=== PATIENT | male | born 1975 | race Caucasian/White ===

== ENCOUNTER 2022-12-01 17:32 | Observation (INO) ==
--- NOTE | 2022-12-01 17:49 | ED Triage Note ---
Date of Service December 01, 2022 History of Present Illness This patient was briefly evaluated while in triage. An abbreviated physical exam was performed. This patient is a 47-year-old Male who presents to the ED for evaluation of pain and swelling. Hx of severe arthritis. Called arthritis doctor and cannot get into the end of sept. Edema of hands, ankles and feet. Pain 8.5/10. Physical Exam GENERAL: 47 year old male. In no acute distress. SKIN: No lesions or rashes. HEART: Regular rate and rhythm. LUNGS: Clear to auscultation. NEURO: Alert and oriented. No deficits. MUSCULOSKELETAL: Edema to distal extremities noted. PSYCH: Patient is pleasant and answers all questions appropriately. Initial orders for labs and / or imaging were placed and patient was placed in the waiting area until a bed is available. Please see further documentation for the full ED course.
[2022-12-01 18:16] LABS: Basophils # (auto) 0.06 K/uL (0.00-0.20); Basophils % (auto) 0.7 %; Eosinophils # (auto) 0.24 K/uL (0.00-0.50); Eosinophils % (auto) 2.7 %; Hematocrit (blood only) 41.5 % (42.0-52.0); Hemoglobin 14.9 g/dl (14.0-18.0); Immature Granulocytes # (auto) 0.02 K/uL (0.01-0.20); Immature Granulocytes % (auto) 0.2 %; Lymphocytes # (auto) 2.51 K/uL (1.20-3.40); Lymphocytes % (auto) 28.5 %; Mean Corpuscular Hgb Conc 35.9 g/dL (32.0-36.0); Mean Corpuscular Volume 86.5 fL (80.0-100.0); Mean Platelet Volume 10.1 fL (9.4-12.4); Monocytes % (auto) 12.5 %; Neutrophils # (auto) 4.88 K/uL (1.40-6.50); Neutrophils % (auto) 55.4 %; Platelet Count 263 K/uL (130-400); RDW Coefficient of Variation 13.7 % (11.5-14.5); RDW Standard Deviation 43.2 fL (36.4-46.3); White Blood Count 8.81 K/ul (4.8-10.8)
--- NOTE | 2022-12-01 18:43 | Emergency Department Note ---
Impression & Plan Edema, Elevated troponin, Psoriatic arthritis, Hypertension ED Provider Note NAME: VEDA SINGH AGE: 47 SEX: M : 1975 ARRIVES VIA: Walk-In INFORMANT: Patient, ED PROVIDER(S): Flex Morales MD CHIEF COMPLAINT: Extremity swelling MEDICAL DECISION MAKING: Patient presents due to concern for extremity swelling and associated weight gain. IV was established and blood work was obtained Patient has a normal white count hemoglobin and platelet count. Patient's kidney function is unremarkable with normal electrolytes. Patient's initial troponin is 37. No priors for comparison. The patient does have T wave inversions in the high lateral leads. None for comparison. I did speak the on-call hospitalist Dr. Summers and the patient was admitted to the medicine service. Chest x-ray does show cardiomegaly and vascular congestion. No obvious pneumonia. The patient does not have any asymmetry in his extremities do not believe he requires DVT ultrasounds at this time Prior /Outside records reviewed: I reviewed an outpatient visit note to the [facility]. The patient was seen for joint pain and associated swelling. Patient does have a known history of psoriatic arthritis Differential diagnosis: Electrolyte abnormality, CHF, DVT, liver dysfunction, kidney dysfunction among others were considered Diagnostics, as interpreted by me: ECG: Normal sinus rhythm, rate of 84, normal intervals, normal axis, T wave version in the high lateral leads as well as in the lateral leads. No priors for comparison. Cardiac monitoring: An order was placed for continuous cardiac monitoring. The monitor shows a rate of 82 with sinus rhythm. Patient was placed on pulse oximetry Medical decision rules: None Imaging studies: See below I informally reviewed the patient's chest x-ray which shows cardiomegaly but without pneumothorax HPI: Patient presents due to concern for weight gain and fatigue. The patient has also noticed some associated extremity swelling and joint discomfort. Patient does have a known history of psoriatic arthritis and does state that he may just be having a flareup but has noticed increasing fatigue as well as some swelling. Patient denies any falls or trauma. No reported history of any tick bites or Lyme's. Patient does have some chronic shortness of breath. No orthopnea. The patient denies any chest pains nausea vomiting or diaphoresis. Patient states he is compliant with his medications. Patient is also concerned as he believes he has put on about 15 pounds in over 2 weeks. The patient does receive most of his care through [facility] in [place]. The patient does use a CPAP at night. PAST MEDICAL HISTORY: See Below PAST SURGICAL HISTORY: See Below SOCIAL HISTORY: See Below HOME MEDICATIONS: See Below ALLERGIES: See Below VITALS: See Below PHYSICAL EXAMINATION: GENERAL: NAD, non-toxic. Wearing glasses. EYE EXAM: Normal conjunctiva. PERRL, no anisocoria and EOM's grossly intact w/o pain. OROPHARYNX: Moist mucus membranes, grossly normal dentition. NECK: Supple, no nuchal rigidity, no adenopathy, non-tender. No signs of meningismus. FROM of the neck with good chin to chest and neck extension. No stridor. LUNGS: Clear to auscultation. Normal chest wall mechanics. HEART: NSR, no MRG. ABDOMEN: Abdomen soft, non-tender, no masses, no rebound or guarding. BACK: No CVA TTP. SKIN: No rashes and no bruising. UPPER EXTREMITIES: Upper extremities are grossly normal. LOWER EXTREMITIES: Grossly normal, symmetric edema of the bilateral lower extremities. No calf pain. NEURO EXAM: A&O x3, cranial nerves II-XII grossly intact, normal speech, moves all 4 extremities. Past Med/Surg History Medical History Back pain CHF (congestive heart failure) CTS (carpal tunnel syndrome) Depression Osteoarthritis Psoriasis Psoriatic arthritis Sleep apnea Surgical History H/O removal of cyst History of orthopedic surgery Social History Smoking Status: Current every day smoker Tobacco Type: Cigarettes Preferred Language: Syriac Feels Safe at Home: Yes Allergies Allergies Allergy/AdvReac Type Severity Reaction Status Date / Time adalimumab [From Humira] Allergy Severe rash Verified 12/01/22 20:49 celecoxib [From Celebrex] Allergy Severe Rash Verified 12/01/22 20:49 codeine Allergy Unknown Drowsy Verified 12/01/22 20:49 Sulfa (Sulfonamide Allergy Unknown Rash Verified 12/01/22 20:49 Antibiotics) Home Meds Home Medications Medication Instructions Recorded Confirmed folic acid 1 mg tablet 1 mg PO QAM 05/21/21 12/01/22 methotrexate sodium 2.5 mg tablet 20 mg PO WK 05/21/21 12/01/22 multivitamin (Multiple Vitamins 1 tab PO QAM 05/21/21 12/01/22 tablet) ropinirole 4 mg tablet 4 mg PO HS 05/21/21 12/01/22 turmeric root extract 500 mg 2,000 mg PO QAM 05/21/21 12/01/22 capsule amlodipine 5 mg tablet 5 mg PO QAM 12/01/22 12/01/22 fluticasone fur. 100 mcg-umeclid 2 ea inhalation QAM 12/01/22 12/01/22 62.5 mcg-vilant 25 mcg inhalat.powder (Trelegy Ellipta) lisinopril 40 mg tablet 40 mg PO QAM 12/01/22 12/01/22 piroxicam 20 mg capsule 20 mg PO QAM 12/01/22 12/01/22 ropinirole 4 mg tablet,extended 4 mg PO HS 12/01/22 12/01/22 release 24 hr Results & Data (ED) Vital Signs Vital Signs - 24 hr 12/01/22 17:47 12/01/22 19:09 12/01/22 19:33 Temperature 36 C L Temperature Source Temporal Artery Scan Pulse Rate 84 75 Pulse Rate from SpO2 Sensor 75 Pulse Rhythm [Apical] Regular Pulse Strength [Apical] Normal Respiratory Rate 18 14 Respiratory Effort / Characteristics Non-Labored Non-Labored Respiratory Depth Normal Normal Respiratory Pattern Regular Blood Pressure 177/103 H 159/91 H Blood Pressure Mean 127 113 Pulse Oximetry 96 96 Oxygen Delivery Method Room Air Room Air Sepsis Recent Fever Within 48 Hours No Sepsis New/Unexplained Change in Mental Status No Sepsis Action Taken by Nursing No Action Required 12/01/22 19:30 12/01/22 19:31 12/01/22 20:00 Temperature Temperature Source Pulse Rate 79 80 75 Pulse Rate from SpO2 Sensor 79 80 76 Pulse Rhythm [Apical] Pulse Strength [Apical] Respiratory Rate 19 18 18 Respiratory Effort / Characteristics Respiratory Depth Respiratory Pattern Blood Pressure 166/87 H Blood Pressure Mean 113 Pulse Oximetry 95 97 94 Oxygen Delivery Method Room Air Sepsis Recent Fever Within 48 Hours Sepsis New/Unexplained Change in Mental Status Sepsis Action Taken by Nursing 12/01/22 20:01 12/01/22 18:44 Temperature Temperature Source Pulse Rate 77 78 Pulse Rate from SpO2 Sensor 76 Pulse Rhythm [Apical] Pulse Strength [Apical] Respiratory Rate 20 Respiratory Effort / Characteristics Respiratory Depth Respiratory Pattern Blood Pressure 154/85 H Blood Pressure Mean 108 Pulse Oximetry 96 Oxygen Delivery Method Room Air Sepsis Recent Fever Within 48 Hours Sepsis New/Unexplained Change in Mental Status Sepsis Action Taken by Correction Medications Current Medication List: was personally reviewed by me Laboratory Data Attestation: I reviewed the patient's lab results. 12/01/22 17:55 12/01/22 17:55 Lab Results 12/01/22 12/01/22 12/01/22 Range/Units 17:55 17:55 17:55 WBC 8.81 (4.8-10.8) K/ul RBC 4.80 (4.70-6.10) M/uL Hgb 14.9 (14.0-18.0) g/dl Hct 41.5 L (42.0-52.0) % MCV 86.5 (80.0-100.0) fL MCH 31.0 (25.0-34.0) pg MCHC 35.9 (32.0-36.0) g/dL RDW Std Deviation 43.2 (36.4-46.3) fL RDW Coeff of Karl 13.7 (11.5-14.5) % Plt Count 263 (130-400) K/uL MPV 10.1 (9.4-12.4) fL Immature Gran % (Auto) 0.2 % Neut % (Auto) 55.4 % Lymph % (Auto) 28.5 % [place] % (Auto) 12.5 % Eos % (Auto) 2.7 % Baso % (Auto) 0.7 % Neut # (Auto) 4.88 (1.40-6.50) K/uL Lymph # (Auto) 2.51 (1.20-3.40) K/uL [place] # (Auto) 1.10 H (0.11-0.59) K/uL Eos # (Auto) 0.24 (0.00-0.50) K/uL Baso # (Auto) 0.06 (0.00-0.20) K/uL Immature Gran # (Auto) 0.02 (0.01-0.20) K/uL PT 10.4 (9.0-12.0) Seconds INR 0.9 (0.9-1.1) APTT 26.7 (21.0-31.0) Seconds PTT Ratio 0.9 Sodium 138 (136-145) mmol/L Potassium 3.9 (3.5-5.1) mmol/L Chloride 103 (98-107) mmol/L Carbon Dioxide 27 (21-32) mmol/L Anion Gap 8 (3-11) BUN 23 (6-23) mg/dl Creatinine 0.90 (0.6-1.4) mg/dl Est Cr Clr Drug Dosing 138.6 ml/min Est GFR ( Amer) 115.8 ml/min Est GFR (Non-Af Amer) 99.9 ml/min BUN/Creatinine Ratio 25.6 H (10-20) Glucose 88 (70-99(Fasting)) mg/dl Calcium 9.5 (8.6-10.3) mg/dl Magnesium 2.1 (1.7-2.4) mg/dl Total Bilirubin 0.5 (0.2-1.0) mg/dl AST 23 (13-39) U/L ALT 31 (7-52) U/L Alkaline Phosphatase 66 (34-104) U/L Troponin I High Sens 37.4 H (0-20) pg/ml B-Natriuretic Peptide (0-100) pg/ml Total Protein 8.0 (6.0-8.3) gm/dl Albumin 4.7 (3.4-5.0) gm/dl Globulin 3.3 (2.5-4.0) gm/dl Albumin/Globulin Ratio 1.4 (0.9-2) TSH (0.300-4.500) uIu/ml 12/01/22 12/01/22 Range/Units 17:55 17:55 WBC (4.8-10.8) K/ul RBC (4.70-6.10) M/uL Hgb (14.0-18.0) g/dl Hct (42.0-52.0) % MCV (80.0-100.0) fL MCH (25.0-34.0) pg MCHC (32.0-36.0) g/dL RDW Std Deviation (36.4-46.3) fL RDW Coeff of Karl (11.5-14.5) % Plt Count (130-400) K/uL MPV (9.4-12.4) fL Immature Gran % (Auto) % Neut % (Auto) % Lymph % (Auto) % [place] % (Auto) % Eos % (Auto) % Baso % (Auto) % Neut # (Auto) (1.40-6.50) K/uL Lymph # (Auto) (1.20-3.40) K/uL [place] # (Auto) (0.11-0.59) K/uL Eos # (Auto) (0.00-0.50) K/uL Baso # (Auto) (0.00-0.20) K/uL Immature Gran # (Auto) (0.01-0.20) K/uL PT (9.0-12.0) Seconds INR (0.9-1.1) APTT (21.0-31.0) Seconds PTT Ratio Sodium (136-145) mmol/L Potassium (3.5-5.1) mmol/L Chloride (98-107) mmol/L Carbon Dioxide (21-32) mmol/L Anion Gap (3-11) BUN (6-23) mg/dl Creatinine (0.6-1.4) mg/dl Est Cr Clr Drug Dosing ml/min Est GFR ( Amer) ml/min Est GFR (Non-Af Amer) ml/min BUN/Creatinine Ratio (10-20) Glucose (70-99(Fasting)) mg/dl Calcium (8.6-10.3) mg/dl Magnesium (1.7-2.4) mg/dl Total Bilirubin (0.2-1.0) mg/dl AST (13-39) U/L ALT (7-52) U/L Alkaline Phosphatase (34-104) U/L Troponin I High Sens (0-20) pg/ml B-Natriuretic Peptide 86 (0-100) pg/ml Total Protein (6.0-8.3) gm/dl Albumin (3.4-5.0) gm/dl Globulin (2.5-4.0) gm/dl Albumin/Globulin Ratio (0.9-2) TSH 1.393 (0.300-4.500) uIu/ml Administered Medications Acetaminophen (Acetaminophen 500 Mg Tab) 1,000 mg PO Q8 NICHOLAS Stop: 12/31/22 22:34 Last Admin: 12/01/22 23:12 Dose: 1,000 mg Documented By: LADI Discontinued Medications Oxycodone HCl (Oxycodone Hcl Ir 5 Mg Tab (Immediate Release)) 5 mg PO NOW STA Stop: 12/01/22 19:30 Last Admin: 12/01/22 19:41 Dose: 5 mg Documented By: LADI Imaging Data Radiologist's Impression: Chest X-Ray 12/01/22 17:49 XR chest 1V portable HISTORY: Edema to extremities, atypical chest COMPARISON: None. FINDINGS: No pneumothorax. No pleural effusions. The cardiac silhouette is mildly enlarged. There is diffuse interstitial/vascular thickening consistent with mild congestive change. No focal lung consolidations to suggest a pneumonia. There is a 16 mm nodular density within the right midlung zone. This is likely due to the overlapping ribs. Calcified granuloma within the right upper lobe is noted. IMPRESSION: 1. Cardiomegaly with mild pulmonary vascular congestion. 2. A 16 mm nodular density within the right mid lung zone is likely due to the overlapping ribs. Follow-up nonemergent PA and lateral views of the chest are recommended once the patient's pulmonary vascular congestion has improved to exclude the possibility of a pulmonary nodule. ACT 112: Negative or not required by law. Electronically signed by: Tyrell Navarro M.D. 12/01/2022 7:03 PM Discharge Plan Visit Data Chief Complaint: Lower Extremity Injury/Pain Stated Complaint: FATIGUE, BODY SWELLING ED Provider: Flex Morales Discharge Problem: Edema, Elevated troponin, Psoriatic arthritis, Hypertension Patient Disposition: Admitted As Inpatient Discharge Instructions Interventions: ED Discharge Assessment Last Done: 12/01/22 22:36
[2022-12-01 18:44] LABS: Albumin Globulin Ratio 1.4 (0.9-2); Albumin Level 4.7 gm/dl (3.4-5.0); BUN Creatinine Ratio 25.6 (10-20); Bilirubin,Total 0.5 mg/dl (0.2-1.0); Calcium 9.5 mg/dl (8.6-10.3); Creatinine Clr Calc Pharmacy 138.6 ml/min; Est GFR (African American) 115.8 ml/min; Est GFR (Non-African American) 99.9 ml/min; Globulin 3.3 gm/dl (2.5-4.0); Magnesium 2.1 mg/dl (1.7-2.4); Potassium 3.9 mmol/L (3.5-5.1)
[2022-12-01 18:50] LABS: Troponin I High Sensitivity 37.4 pg/ml (0-20)
[2022-12-01 18:54] LABS: INR 0.9 (0.9-1.1); Partial Thromboplastin Ratio 0.9; Partial Thromboplastin Time 26.7 Seconds (21.0-31.0); Prothrombin Time 10.4 Seconds (9.0-12.0)
--- NOTE | 2022-12-01 19:04 | XRay Report ---
XR chest 1V portable HISTORY: Edema to extremities, atypical chest COMPARISON: None. FINDINGS: No pneumothorax. No pleural effusions. The cardiac silhouette is mildly enlarged. There is diffuse interstitial/vascular thickening consistent with mild congestive change. No focal lung consol idations to suggest a pneumonia. There is a 16 mm nodular density within the right midlung zone. This is likely due to the overlapping ribs. Calcified granuloma within the right upper lobe is noted. IMPRESSION: 1. Cardiomegaly with mild pulmonary vascular congestion. 2. A 16 mm nodular density within the right mid lung zone is likely due to the overlapping ribs. Foll ow-up nonemergent PA and lateral views of the chest are recommended once the patient's pulmonary vasc ular congestion has improved to exclude the possibility of a pulmonary nodule. ACT 112: Negative or not required by law. Electronically signed by: Tyrell Navarro M.D. 12/01/2022 7:03 PM
[2022-12-01] MEDS ORDERED: oxyCODONE HCL IR 5 MG TAB (IMMEDIATE RELEASE) PO STA (19:29)
--- NOTE | 2022-12-01 20:16 | History & Physical Report ---
Date of Service December 01, 2022 Assessment & Plan (1) Edema: Plan: 47yo male with psoriatic arthritis, VIKY on CPAP presenting with progressive edema and weight gain of approximately 14 pounds over the last 2.5 weeks. Patient denies orthopnea or worsening shortness of breath. Reports a history of prior AL with heart failure worked up at outside facilities - details unknown. He is currently not taking any diuretic. Amlodipine 5mg could be contributing to edema. -Admit to medical with telemetry -Check TSH, Urinalysis to look for proteinuria -Repeat troponin -Check 2d echocardiogram -Request outside records from [place] and [facility] -Lasix 40mg IV daily -Monitor I/Os -Monitor daily standing weights -Hold Amlodipine -Consider Cardiology consultation pending results of troponin and echo. Patient should be scheduled Cardiology followup prior to discharge as he has been having a difficult time being seen. (2) Elevated troponin: Plan: Mildly elevated troponin of 37.4 --> 38.2. EKG changes most likely represent LVH with repolarization pattern. Patient denies chest pain. -Telemetry monitoring -Trend troponin -Check 2D echo (3) Hypertension: Plan: Blood pressure elevated at present -Pain control -Continue Lisinopril -Holding Amlodipine for now (4) Sleep apnea: Plan: Chronic. Patient reports compliance with his home CPAP -CPAP qHS (5) Psoriatic arthritis: Plan: Chronic -Continue Methotrexate -Toradol PRN History of Present Illness Chief Complaint: edema Primary Care Provider: Erasto Fletcher PA-C Adolfo Ordoñez is a 47yo male with history of Psoriatic arthritis and VIKY compliant with CPAP therapy presenting with progressive edema over the last several weeks. Patient reports a prior history of CHF that occurred around the time he got the Covid-19 vaccine. He was supposed to be seen by Cardiology in [place] but, unfortunately, there was some miscommunication and he was never scheduled for proper followup. He also reports having a heart attack in 2018. He had a stress test with a subsequent cardiac catheterization. No stents were placed and he reports only a 30% blockage in one of his vessels. This was done at [facility]. Presently he does not follow with a Mortuary Operations Manager or take any cardiac medications. He presents today with worsening edema of the bilateral LE and hands. He first noted the swelling approximately 3-4 weeks ago after being started on Rinvoq for his Psoriatic arthritis by his Open Die Inspector, Dr. Vásquez. He reports worsening swelling x 1-2 weeks while taking the Rinvoq. He then stopped taking the Rinvoq and his swelling slightly improved. Today, however, he notes worsening swelling in his bilateral legs and hands. Also with weight gain - approximately 14 pounds over the last 2.5 weeks. Patient has generalized fatigue as well as pain in his joints. Denies fever, chills, chest pain, palpitations. He has stable shortness of breath and an occasional dry cough which has not worsened or changed. He denies orthopnea, syncope, nausea, vomiting, diarrhea or constipation. He was taking Prednisone for his Psoriatic arthritis - 10mg daily for a little over a year. He reports he was decreasing it himself and was taking it every other day to every third day. Prednisone was discontinued when he started Rinvoq. In the ER he is afebrile, HD stable, NAD. Resting comfortably with his at bedside. ER Course: Oxycodone 5mg Allergies Allergy/AdvReac Type Severity Reaction Status Date / Time adalimumab [From Humira] Allergy Severe rash Verified 12/01/22 20:49 celecoxib [From Celebrex] Allergy Severe Rash Verified 12/01/22 20:49 codeine Allergy Unknown Drowsy Verified 12/01/22 20:49 Sulfa (Sulfonamide Allergy Unknown Rash Verified 12/01/22 20:49 Antibiotics) Home Medications Medication Instructions Recorded Confirmed Type folic acid 1 mg tablet 1 mg PO QAM 05/21/21 12/01/22 History methotrexate sodium 2.5 mg tablet 20 mg PO WK 05/21/21 12/01/22 History multivitamin (Multiple Vitamins 1 tab PO QAM 05/21/21 12/01/22 History tablet) ropinirole 4 mg tablet 4 mg PO HS 05/21/21 12/01/22 History turmeric root extract 500 mg 2,000 mg PO QAM 05/21/21 12/01/22 History capsule amlodipine 5 mg tablet 5 mg PO QAM 12/01/22 12/01/22 History fluticasone fur. 100 mcg-umeclid 2 ea inhalation QAM 12/01/22 12/01/22 History 62.5 mcg-vilant 25 mcg inhalat.powder (Trelegy Ellipta) lisinopril 40 mg tablet 40 mg PO QAM 12/01/22 12/01/22 History piroxicam 20 mg capsule 20 mg PO QAM 12/01/22 12/01/22 History ropinirole 4 mg tablet,extended 4 mg PO HS 12/01/22 12/01/22 History release 24 hr Past Med/Surg History Medical History (Updated 12/01/22 @ 22:16 by Marycarmen Summers DO) Back pain CHF (congestive heart failure) CTS (carpal tunnel syndrome) Depression Osteoarthritis Psoriasis Psoriatic arthritis Sleep apnea Surgical History H/O removal of cyst History of orthopedic surgery Social History Smoking Status: Current every day smoker Tobacco Type: Cigarettes Preferred Language: Bermudian Feels Safe at Home: Yes Review of Systems Review of Systems: All systems reviewed & are unremarkable except as noted in HPI & below Physical Exam 2 Physical Exam: General: patient resting comfortably, NAD, non-toxic in appearance, AA&O x 4 Skin: warm, dry, intact, scattered pustular lesions on upper chest, small fluid filled blisters on RLE HEENT: NC/AT, PERRL, EOMI, anicteric sclera, conjunctiva without injection, external ear normal to inspection and nontender, nares patent, moist mucus membranes, dentition intact, no oropharyngeal lesions, neck supple, trachea midline, no LAD, no thyromegaly, no JVD Heart: +S1/S2, regular, no m/r/g Lungs: equal air entry bilaterally crackles in bilateral bases, no rhonchi/wheezes Abd: +BS, soft, NT/ND, no masses/organomegaly/ascites Ext: warm, 2+ pulses in UE/LE bilaterally, no clubbing/cyanosis, 2+ pitting edema of bilateral LE to knees Neuro: nonfocal, patient AA&O x 4, speech intact, no facial droop, moving all extremities on command with equal strength 5/5 Results & Data Results & Data Vital Signs (Past 12 Hours) Vital Signs Temp Pulse Resp BP Pulse Ox O2 Del Method 12/01/22 19:09 75 14 159/91 H 96 12/01/22 17:47 36 C L 84 18 177/103 H 96 Room Air Laboratory Results Laboratory Results WBC 8.81 K/ul (4.8-10.8) 12/01/22 17:55 RBC 4.80 M/uL (4.70-6.10) 12/01/22 17:55 Hgb 14.9 g/dl (14.0-18.0) 12/01/22 17:55 Hct 41.5 % (42.0-52.0) L 12/01/22 17:55 MCV 86.5 fL (80.0-100.0) 12/01/22 17:55 MCH 31.0 pg (25.0-34.0) 12/01/22 17:55 MCHC 35.9 g/dL (32.0-36.0) 12/01/22 17:55 RDW Std Deviation 43.2 fL (36.4-46.3) 12/01/22 17:55 RDW Coeff of Karl 13.7 % (11.5-14.5) 12/01/22 17:55 Plt Count 263 K/uL (130-400) 12/01/22 17:55 MPV 10.1 fL (9.4-12.4) 12/01/22 17:55 Immature Gran % (Auto) 0.2 % 12/01/22 17:55 Neut % (Auto) 55.4 % 12/01/22 17:55 Lymph % (Auto) 28.5 % 12/01/22 17:55 [place] % (Auto) 12.5 % 12/01/22 17:55 Eos % (Auto) 2.7 % 12/01/22 17:55 Baso % (Auto) 0.7 % 12/01/22 17:55 Neut # (Auto) 4.88 K/uL (1.40-6.50) 12/01/22 17:55 Lymph # (Auto) 2.51 K/uL (1.20-3.40) 12/01/22 17:55 [place] # (Auto) 1.10 K/uL (0.11-0.59) H 12/01/22 17:55 Eos # (Auto) 0.24 K/uL (0.00-0.50) 12/01/22 17:55 Baso # (Auto) 0.06 K/uL (0.00-0.20) 12/01/22 17:55 Immature Gran # (Auto) 0.02 K/uL (0.01-0.20) 12/01/22 17:55 PT 10.4 Seconds (9.0-12.0) 12/01/22 17:55 INR 0.9 (0.9-1.1) 12/01/22 17:55 APTT 26.7 Seconds (21.0-31.0) 12/01/22 17:55 PTT Ratio 0.9 12/01/22 17:55 Sodium 138 mmol/L (136-145) 12/01/22 17:55 Potassium 3.9 mmol/L (3.5-5.1) 12/01/22 17:55 Chloride 103 mmol/L (98-107) 12/01/22 17:55 Carbon Dioxide 27 mmol/L (21-32) 12/01/22 17:55 Anion Gap 8 (3-11) 12/01/22 17:55 BUN 23 mg/dl (6-23) 12/01/22 17:55 Creatinine 0.90 mg/dl (0.6-1.4) 12/01/22 17:55 Est Cr Clr Drug Dosing 138.6 ml/min 12/01/22 17:55 Est GFR ( Amer) 115.8 ml/min 12/01/22 17:55 Est GFR (Non-Af Amer) 99.9 ml/min 12/01/22 17:55 BUN/Creatinine Ratio 25.6 (10-20) H 12/01/22 17:55 Glucose 88 mg/dl (70-99(Fasting)) 12/01/22 17:55 Calcium 9.5 mg/dl (8.6-10.3) 12/01/22 17:55 Magnesium 2.1 mg/dl (1.7-2.4) 12/01/22 17:55 Total Bilirubin 0.5 mg/dl (0.2-1.0) 12/01/22 17:55 AST 23 U/L (13-39) 12/01/22 17:55 ALT 31 U/L (7-52) 12/01/22 17:55 Alkaline Phosphatase 66 U/L (34-104) 12/01/22 17:55 Troponin I High Sens 38.2 pg/ml (0-20) H 12/01/22 20:13 B-Natriuretic Peptide 86 pg/ml (0-100) 12/01/22 17:55 Total Protein 8.0 gm/dl (6.0-8.3) 12/01/22 17:55 Albumin 4.7 gm/dl (3.4-5.0) 12/01/22 17:55 Globulin 3.3 gm/dl (2.5-4.0) 12/01/22 17:55 Albumin/Globulin Ratio 1.4 (0.9-2) 12/01/22 17:55 Lyme Disease IgG Ab Negative (Negative) 12/01/22 20:13 Lyme Disease IgM Ab Negative (Negative) 12/01/22 20:13 Impressions Chest X-Ray 12/01/22 17:49 XR chest 1V portable HISTORY: Edema to extremities, atypical chest COMPARISON: None. FINDINGS: No pneumothorax. No pleural effusions. The cardiac silhouette is mildly enlarged. There is diffuse interstitial/vascular thickening consistent with mild congestive change. No focal lung consolidations to suggest a pneumonia. There is a 16 mm nodular density within the right midlung zone. This is likely due to the overlapping ribs. Calcified granuloma within the right upper lobe is noted. IMPRESSION: 1. Cardiomegaly with mild pulmonary vascular congestion. 2. A 16 mm nodular density within the right mid lung zone is likely due to the overlapping ribs. Follow-up nonemergent PA and lateral views of the chest are recommended once the patient's pulmonary vascular congestion has improved to exclude the possibility of a pulmonary nodule. ACT 112: Negative or not required by law. Electronically signed by: Tyrell Navarro M.D. 12/01/2022 7:03 PM ECG Additional Comments: EKG with NSR at 84bpm, normal axis, TT=309, YZj=320, NMb=447, LVH with likely repolarization pattern PG Care Time/CCT Total # of Minutes Spent Total Time Spent with Patient: Total time spent is greater than 50% in coordination of care (as documented) at patient's floor/unit and/or counseling patient: Coding Level of Care Code 61374 INT INP/OBS CARE 2/55MIN Diagnoses Edema R60.9 Elevated troponin R77.8 Hypertension I10 Sleep apnea G47.30 Psoriatic arthritis L40.50
[2022-12-01 21:40] LABS: Lyme Ab IgG w/WB Rflx Negative (Negative); Lyme Ab IgM w/WB Rflx Negative (Negative)
[2022-12-01] MEDS ORDERED: KETOROLAC TROMETHAMINE 15 MG/ML VIAL IV PRN (22:35)
[2022-12-01] MEDS ORDERED: ONDANSETRON INJ 2 MG/ML 2 ML VIAL IV PRN (22:35)
[2022-12-01] MEDS: ACETAMINOPHEN 500 MG TAB PO SCH (23:12)
[2022-12-02 04:40] LABS: Hematocrit (blood only) 40.1 % (42.0-52.0); Mean Corpuscular Hemoglobin 30.5 pg (25.0-34.0); Mean Corpuscular Hgb Conc 34.9 g/dL (32.0-36.0); Mean Corpuscular Volume 87.4 fL (80.0-100.0); Mean Platelet Volume 9.7 fL (9.4-12.4); Platelet Count 238 K/uL (130-400); RDW Coefficient of Variation 13.9 % (11.5-14.5); RDW Standard Deviation 43.8 fL (36.4-46.3); Red Blood Count 4.59 M/uL (4.70-6.10); White Blood Count 7.92 K/ul (4.8-10.8)
[2022-12-02 04:48] LABS: BUN Creatinine Ratio 22.9 (10-20); Calcium 8.9 mg/dl (8.6-10.3); Est GFR (African American) 107.1 ml/min; Est GFR (Non-African American) 92.4 ml/min; Potassium 3.8 mmol/L (3.5-5.1)
[2022-12-02 04:54] LABS: Troponin I High Sensitivity 30.5 pg/ml (0-20)
[2022-12-02] MEDS: ACETAMINOPHEN 500 MG TAB PO SCH ×3 (05:36→21:17)
[2022-12-02 06:31] LABS: Appearance Urine Clear (Clear); Bacteria Urine Automated Negative (Negative); Bilirubin Urine Negative (Negative); Blood Urine Negative (Negative); Color Urine Dark Yellow; Glucose Urine UA Negative (Negative); Ketones Urine Negative (Negative); Leukocyte Esterase Urine Negative (Negative); Nitrite Urine Negative (Negative); Protein Urine Trace (Negative); RBC Urine Automated 0-4 /hpf (0-4); Specific Gravity Urine 1.029 (1.000-1.030); Urobilinogen Urine Negative (Negative); pH Urine 5.5 (4.5-7.5)
[2022-12-02] MEDS ORDERED: FUROSEMIDE 40 MG/4 ML VIAL IV SCH (09:00)
[2022-12-02] MEDS ORDERED: cloNIDine HCL 0.1 MG TAB PO ONE (14:01)
--- NOTE | 2022-12-02 14:08 | Hospitalist Progress Note ---
Date of Service December 02, 2022 Assessment & Plan (1) Edema: Plan: Pulmonary vascular congestion noted on x-ray. Continue intravenous Lasix diuresis. Blood pressure control. Await cardiac echo results. Amlodipine discontinued as it may be contributing to peripheral edema (2) Elevated troponin: Plan: No chest pain. EKG changes are probably due to LVH. Cardiac echo report is pending. No evidence of acute coronary syndrome. This probably represents supply demand mismatch. (3) Hypertension: Plan: Clonidine replaces amlodipine. Continue lisinopril. (4) Sleep apnea: Plan: Weight loss recommended. CPAP at bedtime (5) Psoriatic arthritis: Plan: Stable. Continue Methotrexate Plan Hopefully home tomorrowDecember 03 Admission and Anticipated Discharge Date Admission Date: December 01, 2022 Subjective Alert and oriented. No distress. No shortness of breath at rest. Cardiac echo is pending. Troponin is minimally elevated but no evidence of acute coronary syndrome. Cardiac echo report is pending. Lisinopril will continue and amlodipine has been discontinued due to presence of peripheral edema. Clonidine replaces amlodipine. Continue IV Lasix diuresis. Chest x-ray shows pulmonary vascular congestion and cardiomegaly with no overt CHF. Troponin is minimally elevated with no chest pain. Hopefully home tomorrowDecember 03 Review of Systems Review of Systems: Constitutional-no fever or chills. Obese ENT-no blurred vision, no double vision, no epistaxis, no sore throat Respiratory-dyspnea on exertion, no wheezing, Cardiac-no palpitations, no chest pain, no syncope GI-no nausea, vomiting, diarrhea, melena, hematochezia -no urinary retention, no urinary incontinence, no dysuria, no hematuria Crkfhqoxniiyleg-7-7+ peripheral edema bilateral lower extremities Skin-no bruising, no rashes, no pruritus Neuro-no isolated weakness, no paresthesia, no weakness Psych-no depression, no anxiety Physical Exam Physical Exam: General-alert and oriented x3, no fevers, no chills. Obese HEENT-head atraumatic and normocephalic, pupils equal and reactive to light, extraocular muscles intact Neck-no lymphadenopathy or thyromegaly, trachea midline Chest-clear to auscultation percussion. No rales wheezing or rhonchi Cardiac-regular rate and rhythm, normal S1 and S2 Abdomen-normal bowel sounds, nontender, no hepatosplenomegaly Extremities-1+ pitting edema bilateral lower extremities below the knees Neuro-cranial nerves II through XII intact, motor and sensory function within normal limits, strength symmetrical , no focal deficits Psych-normal affect, normal mood Results & Data Results & Data Vital Signs (Past 12 Hours) Vital Signs Pulse Pulse Resp BP Pulse Ox O2 Del Method 12/02/22 13:48 65 18 175/97 H 96 Room Air 12/02/22 08:20 56 L 12/02/22 06:13 60 20 160/80 H 96 Room Air 12/02/22 04:01 53 L 18 137/65 97 CPAP Laboratory Results 12/02/22 04:16 12/02/22 04:16 PG Care Time/CCT Total # of Minutes Spent Total Time Spent with Patient: Total time spent is greater than 50% in coordination of care (as documented) at patient's floor/unit and/or counseling patient: Coding Level of Care Code 05272 SUB INP/OBS CARE 3/50MIN Diagnoses Edema R60.9 Elevated troponin R77.8 Hypertension I10 Sleep apnea G47.30 Psoriatic arthritis L40.50
[2022-12-02] MEDS: lisinopril 40 MG TAB PO SCH (14:19)
--- NOTE | 2022-12-02 15:05 | XCELERA ---
[id number]
--- NOTE | 2022-12-02 16:49 | Electrocardiogram Report ---
Test Reason : Blood Pressure : / mmHG Vent. Rate : 084 BPM Atrial Rate : 084 BPM P-R Int : 148 ms QRS Dur : 104 ms QT Int : 388 ms P-R-T Axes : 045 008 158 degrees QTc Int : 458 ms Normal sinus rhythm Left atrial enlargement Left ventricular hypertrophy with repolarization abnormality Abnormal ECG No previous ECGs available Confirmed by Jony Espinosa ([id number]) on 12/02/2022 4:48:49 PM Referred By: REFERRED SELF Confirmed By:Jony Espinosa
[2022-12-02] MEDS: FUROSEMIDE 40 MG/4 ML VIAL IV SCH (17:24)
[2022-12-02] MEDS ORDERED: rOPINIRole HCL 2 MG TABLET PO SCH (21:00)
[2022-12-03] MEDS: ACETAMINOPHEN 500 MG TAB PO SCH (05:45)
[2022-12-03] MEDS: FUROSEMIDE 40 MG/4 ML VIAL IV SCH (05:45)
[2022-12-03 06:48] LABS: BUN Creatinine Ratio 23.5 (10-20); Calcium 8.9 mg/dl (8.6-10.3); Creatinine Clr Calc Pharmacy 126.6 ml/min; Est GFR (African American) 104.5 ml/min; Est GFR (Non-African American) 90.2 ml/min; Potassium 4.1 mmol/L (3.5-5.1)
[2022-12-03] MEDS: lisinopril 40 MG TAB PO SCH (08:15)
[2022-12-03] MEDS ORDERED: cloNIDine HCL 0.1 MG TAB PO SCH (09:00)
--- NOTE | 2022-12-03 11:58 | Discharge Summary ---
Date of Service December 03, 2022 Admission HPI Per Admitting Provider Adolfo Ordoñez is a 47yo male with history of Psoriatic arthritis and VIYK compliant with CPAP therapy presenting with progressive edema over the last several weeks. Patient reports a prior history of CHF that occurred around the time he got the Covid-19 vaccine. He was supposed to be seen by Cardiology in [place] but, unfortunately, there was some miscommunication and he was never scheduled for proper followup. He also reports having a heart attack in 2018. He had a stress test with a subsequent cardiac catheterization. No stents were placed and he reports only a 30% blockage in one of his vessels. This was done at [facility]. Presently he does not follow with a Automotive Welder or take any cardiac medications. He presents today with worsening edema of the bilateral LE and hands. He first noted the swelling approximately 3-4 weeks ago after being started on Rinvoq for his Psoriatic arthritis by his Political Director, Dr. Vásquez. He reports worsening swelling x 1-2 weeks while taking the Rinvoq. He then stopped taking the Rinvoq and his swelling slightly improved. Today, however, he notes worsening swelling in his bilateral legs and hands. Also with weight gain - approximately 14 pounds over the last 2.5 weeks. Patient has generalized fatigue as well as pain in his joints. Denies fever, chills, chest pain, palpitations. He has stable shortness of breath and an occasional dry cough which has not worsened or changed. He denies orthopnea, syncope, nausea, vomiting, diarrhea or constipation. He was taking Prednisone for his Psoriatic arthritis - 10mg daily for a little over a year. He reports he was decreasing it himself and was taking it every other day to every third day. Prednisone was discontinued when he started Rinvoq. In the ER he is afebrile, HD stable, NAD. Resting comfortably with his at bedside. ER Course: Oxycodone 5mg Principal Diagnosis Acute diastolic CHF with pulmonary vascular congestion and peripheral edema, uncontrolled hypertension, left ventricular hypertrophy Discharge Exam General-alert and oriented x3, no fevers, no chills. Obese HEENT-head atraumatic and normocephalic, pupils equal and reactive to light, extraocular muscles intact Neck-no lymphadenopathy or thyromegaly, trachea midline Chest-clear to auscultation percussion. No rales wheezing or rhonchi Cardiac-regular rate and rhythm, normal S1 and S2 Abdomen-normal bowel sounds, nontender, no hepatosplenomegaly Extremities-1+ pitting edema bilateral lower extremities below the knees Neuro-cranial nerves II through XII intact, motor and sensory function within normal limits, strength symmetrical , no focal deficits Psych-normal affect, normal mood Discharge Data Allergies Allergy/AdvReac Type Severity Reaction Status Date / Time adalimumab [From Humira] Allergy Severe rash Verified 12/01/22 20:49 celecoxib [From Celebrex] Allergy Severe Rash Verified 12/01/22 20:49 codeine Allergy Unknown Drowsy Verified 12/01/22 20:49 Sulfa (Sulfonamide Allergy Unknown Rash Verified 12/01/22 20:49 Antibiotics) Consultations 12/01/22 19:29 ED Decision to Admit Stat Hospital Course (1) Edema: Suspected acute diastolic CHF. Pulmonary vascular congestion noted on x-ray on admission. Cardiac echo reveals moderate left ventricular hypertrophy with normal systolic function but diastolic dysfunction. Normal right ventricular size and function. He has responded nicely to Lasix diuresis. Blood pressure control is a necessity here. He is now on clonidine which might have to be uptitrated as an outpatient. Amlodipine has been discontinued since it may be contributing to the peripheral edema and could confuse the clinical picture. He remains on lisinopril. (2) Elevated troponin: No chest pain. EKG changes are probably due to LVH. Cardiac echo report noted. No regional wall motion abnormalities. No evidence of acute coronary syndrome. This probably represents supply demand mismatch. (3) Hypertension: Clonidine replaces amlodipine. Continue lisinopril. (4) Sleep apnea: Weight loss recommended. CPAP at bedtime (5) Psoriatic arthritis: Stable. Continue Methotrexate (6) Morbid obesity: BMI greater than 40. Significant weight loss recommended Plan Home today, December 03, on Lasix and potassium. Clonidine replaces amlodipine. He will remain off work until he is seen by his PCP Total Time Total Time Spent Total Time Spent (In Minutes): 45-minutes Discharge Plan Discharge Items Patient Disposition: Home - Self-Care Reason For Visit: EDEMA, WEIGHT GAIN Discharge Diagnosis: Acute diastolic CHF, left ventricular hypertrophy, uncontrolled hypertension, morbid obesity Activity: Resume your previous activity Non-emergency contact: Primary Care Provider Call non-emergency contact if: you have any medication questions and your symptoms worsen Follow-up/Referrals: Erasto Fletcher, PAOpal [Primary Care Provider] - Diet: Regular and Heart Healthy Addtl Attending Provider Instructions: Clonidine replaces amlodipine. Take Lasix water pill daily along with a potassium pill daily. All other medications remain the same. Significant weight loss recommended Pending Studies at Discharge: No Stand-Alone Forms: [facility], Work/School Release, Smoking Cessation Medications and DC Order Prescriptions: New clonidine HCl 0.1 mg Tablet 0.1 mg PO QAM Qty: 30 0RF furosemide [Lasix] 40 mg tablet 40 mg PO DAILY Qty: 30 0RF potassium chloride 10 mEq capsule, extended release 10 meq PO DAILY Qty: 30 0RF clonidine HCl 0.1 mg tablet 0.1 mg PO DAILY Qty: 30 0RF Continued methotrexate sodium 2.5 mg tablet 20 mg PO WK Rx Instructions: tuesday 8 tablets folic acid 1 mg tablet 1 mg PO QAM multivitamin [Multiple Vitamins] Tablet 1 tab PO QAM ropinirole 4 mg tablet 4 mg PO HS turmeric root extract 500 mg capsule 2,000 mg PO QAM ropinirole 4 mg tablet extended release 24 hr 4 mg PO HS lisinopril 40 mg tablet 40 mg PO QAM piroxicam 20 mg capsule 20 mg PO QAM Trelegy Ellipta 100-62.5-25 mcg blister with device 2 ea INHALATION QAM Discontinued amlodipine 5 mg tablet 5 mg PO QAM Discharge Orders: Discharge Order- CHF (Routine); Ordered 12/03/22 Ordered By: Ricardo Vilchis Admission Data Admit Date/Time: 12/01/22 20:04 Attending Provider: Ricardo Vilchis Admit Provider: Marycarmen Summers Primary Care Provider: Erasto Fletcher Other Providers: Marycarmen Summers Coding Level of Care Code 46375 INP/OBS DISCH >30 MIN Diagnoses Edema R60.9 Elevated troponin R77.8 Hypertension I10 Sleep apnea G47.30 Psoriatic arthritis L40.50 Morbid obesity E66.01
== END 2022-12-03 12:30 | disposition home or self-care (01) | DRG 291 ==
LOC: ED 17:32 → SUATTDRO 20:04 → INTOOBSV 20:04 → EDINP 20:04 → 2N 22:36

== ENCOUNTER 2023-08-17 19:14 | Observation (INO) ==
[2023-08-17 20:40] LABS: Basophils # (auto) 0.06 K/uL (0.00-0.20); Basophils % (auto) 0.4 %; Eosinophils # (auto) 0.17 K/uL (0.00-0.50); Hematocrit (blood only) 37.7 % (42.0-52.0); Hemoglobin 13.5 g/dl (14.0-18.0); Immature Granulocytes # (auto) 0.06 K/uL (0.01-0.20); Immature Granulocytes % (auto) 0.4 %; Lymphocytes # (auto) 1.57 K/uL (1.20-3.40); Lymphocytes % (auto) 9.5 %; Mean Corpuscular Hemoglobin 29.5 pg (25.0-34.0); Mean Corpuscular Hgb Conc 35.8 g/dL (32.0-36.0); Mean Corpuscular Volume 82.5 fL (80.0-100.0); Mean Platelet Volume 9.6 fL (9.4-12.4); Monocytes # (auto) 1.77 K/uL (0.11-0.59); Monocytes % (auto) 10.7 %; Neutrophils # (auto) 12.92 K/uL (1.40-6.50); Platelet Count 329 K/uL (130-400); RDW Coefficient of Variation 12.6 % (11.5-14.5); RDW Standard Deviation 38.4 fL (36.4-46.3); Red Blood Count 4.57 M/uL (4.70-6.10); White Blood Count 16.55 K/ul (4.8-10.8)
--- NOTE | 2023-08-17 20:55 | Emergency Department Note ---
Impression & Plan Cellulitis, Failure of outpatient treatment ED Provider Note ED Provider Note NAME: VEDA SINGH AGE:48 SEX: Male : 1975 ARRIVES VIA: Private vehicle INFORMANT: Patient ED PROVIDER(s): Codie Ribera DO CHIEF COMPLAINT: Worsening rash HPI: This is a 48-year-old male presents emergency department due to concern for worsening rash/infection noted in the left axillary region. Patient states he first noticed a small area of redness and pain there on Tuesday night. He states Tuesday they went inside evaluation and was started on doxycycline. They state he was taking the doxycycline but his symptoms did not seem improving so on Tuesday they went to [facility]. They state there he received a dose of IV vancomycin, and an incision was made into the wound to allow for drainage. states they did take and send a culture during this time. She does not know how much drainage was expressed when this I&D was performed. He was then discharged on clindamycin. He is now been on the clindamycin for 2 days and symptoms are worsening. He is now having fevers and chills, fatigue, worsening pain, and states the involved area of redness appears to be spreading and there is a blister beginning to form. No prior similar episodes. No known trauma or bite to the area last week. Patient is not a diabetic. No history of MRSA. Patient does have a prior history of rheumatologic disorders however is currently not on any Biologics or other immune altering medications. PAST MEDICAL HISTORY:See Below PAST SURGICAL HISTORY:See Below FAMILY HISTORY:See Below SOCIAL HISTORY:See Below HOME MEDICATIONS:See Below ALLERGIES:See Below VITALS:See Below PHYSICAL EXAMINATION: GENERAL: alert, well appearing, well nourished, no distress, non-toxic EYE EXAM: normal conjunctiva, PERRL and EOM's grossly intact OROPHARYNX: no exudate, no erythema, lips, buccal mucosa, and tongue normal and mucous membranes are moist NECK: supple, no nuchal rigidity, no adenopathy, non-tender LUNGS: Clear to auscultation. Normal chest wall mechanics, no w/r/r HEART: no murmurs, S1 normal and S2 normal CHEST WALL: Area of the left lateral chest wall/left axillary region that appears to be extending more medially across the left breast of erythema, tenderness with palpation, small appearing bullae without rupture, no crepitus, area from prior I&D also noted, no active drainage from the site ABDOMEN: abdomen soft, non-tender, normo-active bowel sounds, no masses, no rebound or guarding. SKIN: no rashes, petechiae, orbruising UPPER EXTREMITIES: upper extremities are grossly normal. FROM, nml pulses b/l. LOWER EXTREMITIES: No pitting edema. FROM, nml pulses b/l. NEURO EXAM: Normal sensorium, cranial nerves II-XII grossly intact, normal speech, no facial droop,nogross weakness of arms, no gross weakness of legs. Gross sensation intact. No ataxia. Vital Signs: reviewed and remarkable Differential Diagnosis: cellulitis, abscess, MRSA infection, DVT, necrotizing fasciitis, dermatitis, drug eruption, as well as others were entertained. MEDICAL DECISION MAKING: This is a 48-year-old male presents emergency room due to concern for worsening cellulitis despite outpatient antibiotics and prior evaluation. He was afebrile vital signs stable although complained of subjective fevers and chills, fatigue, and decreased appetite. Labs drawn and sent, IV established, patient initially evaluated in a waiting room area. He was given IV Tylenol started on IV fluids while there however once a patient room was available he was also given IV morphine for pain when he could be monitored on telemetry. Blood cultures and procalcitonin added as were tickborne studies as a precaution due to the unclear origin of this. Case discussed with the hospitalist team due to concern for worsening cellulitis and failed outpatient management. After this discussion, IV daptomycin was also added. Consultation(s): 2209: Discussed with Dr. Summers, [facility] hospitalist team, for additional evaluation and management. ER Treatment Provided: See below Diagnostics Interpreted By Me: -Cardiac Monitoring: An order was placed for continuous cardiac monitoring. The monitor shows a rate of 76 with normal sinus rhythm. -Laboratory studies: As stated above and show below. Triage Nursing Note Reviewed Prior/Outside Records Reviewed Past Med/Surg History Medical History CHF (congestive heart failure) Psoriasis CTS (carpal tunnel syndrome) Depression Hypertension Sleep apnea Back pain Psoriatic arthritis Osteoarthritis Surgical History H/O removal of cyst History of orthopedic surgery Social History Smoking Status: Former smoker Tobacco Type: Cigarettes Smoking End Date: 01/09/2023; Hx Alcohol Use: No Hx Substance Use: No Preferred Language: [place]ese Communication Ability: Effective Furniture Cleaner Required: No Beliefs That Will Affect Care: None Current Living Situation: Spouse and Family Current Living Situation Comment: and daughter Other Information That Helps Us Care for You: No Feels Safe at Home: Yes Safety Concerns: Feels Safe At This Time Assistive Devices: Glasses Assistive Devices Comment: partial dentures at home Allergies Allergies Allergy/AdvReac Type Severity Reaction Status Date / Time adalimumab [From Humira] Allergy Severe rash Verified 12/01/22 20:49 celecoxib [From Celebrex] Allergy Severe Rash Verified 12/01/22 20:49 codeine Allergy Unknown Drowsy Verified 12/01/22 20:49 Sulfa (Sulfonamide Allergy Unknown Rash Verified 12/01/22 20:49 Antibiotics) Home Meds Home Medications Medication Instructions Recorded Confirmed folic acid 1 mg tablet 1 mg PO QAM 05/21/21 12/01/22 methotrexate sodium 2.5 mg tablet 20 mg PO WK 05/21/21 12/01/22 multivitamin (Multiple Vitamins 1 tab PO QAM 05/21/21 12/01/22 tablet) ropinirole 4 mg tablet 4 mg PO HS 05/21/21 08/17/23 turmeric root extract 500 mg 2,000 mg PO QAM 05/21/21 12/01/22 capsule fluticasone fur. 100 mcg-umeclid 2 ea inhalation QA 12/01/22 12/01/22 62.5 mcg-vilant 25 mcg inhalat.powder (Trelegy Ellipta) lisinopril 40 mg tablet 40 mg PO QAM 12/01/22 08/17/23 piroxicam 20 mg capsule 20 mg PO QAM 12/01/22 12/01/22 ropinirole 4 mg tablet,extended 4 mg PO HS 12/01/22 08/17/23 release 24 hr hydralazine 50 mg tablet 50 mg PO TID 08/17/23 08/17/23 hydrochlorothiazide 12.5 mg tablet 12.5 mg PO DAILY 08/17/23 08/17/23 hydrocodone 10 mg-acetaminophen 1 tab PO Q6 PRN Pain 08/17/23 08/17/23 325 mg tablet phentermine 37.5 mg tablet 37.5 mg PO QAM 08/17/23 08/17/23 torsemide 20 mg tablet 20 mg PO BID 08/17/23 08/17/23 Previous Rx's Medication Instructions Recorded clonidine HCl 0.1 mg tablet 0.1 mg PO DAILY #30 tabs 12/03/22 clonidine HCl 0.1 mg tablet 0.1 mg PO QAM #30 tabs 12/03/22 furosemide 40 mg tablet (Lasix) 40 mg PO DAILY #30 tabs 12/03/22 potassium chloride 10 mEq 10 meq PO DAILY #30 caps 12/03/22 capsule,extended release Results & Data (ED) Vital Signs Vital Signs - 24 hr 08/17/23 19:48 08/17/23 21:47 08/17/23 21:57 Temperature 36.6 C Temperature Source Oral Pulse Rate 92 H 86 Pulse Rate [Right Finger] 85 Pulse Rhythm [Right Finger] Regular Pulse Strength [Right Finger] Normal Respiratory Rate 20 18 Respiratory Effort / Characteristics Non-Labored Respiratory Depth Normal Respiratory Pattern Regular Blood Pressure 113/68 Blood Pressure [Right Arm] 103/56 L Blood Pressure Mean 83 Blood Pressure Mean [Right Arm] 71 Blood Pressure Position [Right Arm] Sitting Pulse Oximetry 99 97 Oxygen Delivery Method Room Air Room Air Sepsis Recent Fever Within 48 Hours No Sepsis New/Unexplained Change in Mental Status No Sepsis Action Taken by Nursing No Action Required 08/17/23 23:00 Temperature Temperature Source Pulse Rate Pulse Rate [Right Finger] 68 Pulse Rhythm [Right Finger] Regular Pulse Strength [Right Finger] Normal Respiratory Rate 16 Respiratory Effort / Characteristics Non-Labored Respiratory Depth Normal Respiratory Pattern Regular Blood Pressure Blood Pressure [Right Arm] 118/67 Blood Pressure Mean Blood Pressure Mean [Right Arm] 84 Blood Pressure Position [Right Arm] Sitting Pulse Oximetry 94 Oxygen Delivery Method Room Air Sepsis Recent Fever Within 48 Hours Sepsis New/Unexplained Change in Mental Status Sepsis Action Taken by Nursing Laboratory Data 08/17/23 20:14 08/17/23 20:14 Lab Results 08/17/23 Range/Units 20:14 WBC 16.55 H (4.8-10.8) K/ul RBC 4.57 L (4.70-6.10) M/uL Hgb 13.5 L (14.0-18.0) g/dl Hct 37.7 L (42.0-52.0) % MCV 82.5 (80.0-100.0) fL MCH 29.5 (25.0-34.0) pg MCHC 35.8 (32.0-36.0) g/dL RDW Std Deviation 38.4 (36.4-46.3) fL RDW Coeff of Karl 12.6 (11.5-14.5) % Plt Count 329 (130-400) K/uL MPV 9.6 (9.4-12.4) fL Immature Gran % (Auto) 0.4 % Neut % (Auto) 78.0 % Lymph % (Auto) 9.5 % [place] % (Auto) 10.7 % Eos % (Auto) 1.0 % Baso % (Auto) 0.4 % Neut # (Auto) 12.92 H (1.40-6.50) K/uL Lymph # (Auto) 1.57 (1.20-3.40) K/uL [place] # (Auto) 1.77 H (0.11-0.59) K/uL Eos # (Auto) 0.17 (0.00-0.50) K/uL Baso # (Auto) 0.06 (0.00-0.20) K/uL Immature Gran # (Auto) 0.06 (0.01-0.20) K/uL Sodium 135 L (136-145) mmol/L Potassium 3.3 L (3.5-5.1) mmol/L Chloride 95 L (98-107) mmol/L Carbon Dioxide 27 (21-32) mmol/L Anion Gap 13 H (3-11) BUN 38 H (6-23) mg/dl Creatinine 1.88 H (0.6-1.4) mg/dl Est Cr Clr Drug Dosing 60.8 ml/min Est GFR ( Amer) 47.2 ml/min Est GFR (Non-Af Amer) 40.7 ml/min BUN/Creatinine Ratio 20.2 H (10-20) Glucose 117 H (70-99(Fasting)) mg/dl Calcium 9.7 (8.6-10.3) mg/dl Total Bilirubin 0.5 (0.2-1.0) mg/dl AST 15 (13-39) U/L ALT 19 (7-52) U/L Alkaline Phosphatase 54 (34-104) U/L Total Protein 8.9 H (6.0-8.3) gm/dl Albumin 4.7 (3.4-5.0) gm/dl Globulin 4.2 H (2.5-4.0) gm/dl Albumin/Globulin Ratio 1.1 (0.9-2) Procalcitonin 0.11 (0-0.5) ng/ml Anaplasma Smear See Comment Babesia Smear See Comment Lyme Disease Screen Negative (Negative) Administered Medications Hydrocodone Bitart/Acetaminophen (Hydrocodone/Acetaminophen 10/325 Tab) 1 tab PO Q6 PRN PRN Reason: Pain Stop: 09/01/23 00:10 Last Admin: 08/18/23 00:54 Dose: 1 tab Documented By: KARLEE Lactated Ringer's (Lr) 1,000 mls @ 125 mls/hr IV .Q8H NICHOLAS Stop: 08/18/23 16:10 Last Admin: 08/18/23 00:53 Dose: 125 mls/hr Documented By: KARLEE Miscellaneous (*Ropinirole Er*Order Awaiting Action) 1 each N/A QS [facility] Stop: 09/17/23 00:29 Last Admin: 08/18/23 00:56 Dose: Not Given Documented By: KARLEE Discontinued Medications Acetaminophen (Ofirmev) 1,000 mg in 100 mls @ 400 mls/hr IV NOW STA Stop: 08/17/23 21:04 Last Infusion: 08/17/23 23:06 Dose: Infused Documented By: [facility] Admin: 08/17/23 21:19 Dose: 400 mls/hr Documented By: LAURYN Sodium Chloride (Nss) 1,000 mls @ 125 mls/hr IV .Q8H NICHOLAS Stop: 09/16/23 20:59 Last Infusion: 08/18/23 00:45 Dose: Infused Documented By: Admin: 08/17/23 21:19 Dose: 125 mls/hr Documented By: LAURYN Daptomycin 375 mg/ Syringe 7.5 mls @ 3.75 mls/min IV Q24H NICHOLAS; Protocol Stop: 08/24/23 22:14 Last Admin: 08/18/23 00:14 Dose: 3.75 mls/min Documented By: KARLEE Morphine Sulfate (Morphine Sulfate 4 Mg/Ml 1 Ml Carp\Vial) 4 mg IV NOW STA Stop: 08/17/23 22:19 Last Admin: 08/17/23 23:11 Dose: 4 mg Documented By: [facility] Potassium Chloride (Potassium Chloride Crtab 20 Meq Tabcr) 40 meq PO NOW STA Stop: 08/18/23 00:12 Last Admin: 08/18/23 00:54 Dose: 40 meq Documented By: HNT Discharge Plan Visit Data Chief Complaint: Upper Extremity Injury/Pain Stated Complaint: SWELLING UNDER LT ARM PIT, PAIN,BLISTERS ED Provider: Codie Ribera Discharge Problem: Cellulitis, Failure of outpatient treatment Patient Disposition: Admitted As Inpatient Discharge Instructions Interventions: ED Discharge Assessment Last Done: 08/17/23 23:25
[2023-08-17 20:58] LABS: Albumin Globulin Ratio 1.1 (0.9-2); Albumin Level 4.7 gm/dl (3.4-5.0); BUN Creatinine Ratio 20.2 (10-20); Bilirubin,Total 0.5 mg/dl (0.2-1.0); Calcium 9.7 mg/dl (8.6-10.3); Creatinine Clr Calc Pharmacy 60.8 ml/min; Est GFR (African American) 47.2 ml/min; Est GFR (Non-African American) 40.7 ml/min; Globulin 4.2 gm/dl (2.5-4.0); Potassium 3.3 mmol/L (3.5-5.1); Total Protein 8.9 gm/dl (6.0-8.3)
[2023-08-17] MEDS: SODIUM CHLORIDE 0.9% 1,000 ML IV SCH (21:19)
[2023-08-17] MEDS: ACETAMINOPHEN 1,000 MG/100 ML VIAL IV STA (21:19)
--- NOTE | 2023-08-17 23:04 | History & Physical Report ---
Date of Service August 17, 2023 Assessment & Plan (1) Abscess: Plan: 48yo male presenting with progressively worsening pain/redness and swelling of the left axilla. He has been on Doxycycline and most recently Clindamycin with progression of symptoms. Now endorsing some systemic symptoms of infection including fever/chills/nausea and poor appetite. He is afebrile, HD stable and non-toxic in appearance. Not septic presently. CT of the chest performed with results as above - abscess noted in the axilla. No gas. -Admit to medical -Follow blood cultures sent from ER -Will request records from [facility] on cultures from recent ER visit -Continue to thad area of redness in left axilla to monitor for progression -Daptomycin 4mg/kg daily for skin/soft tissue infection -Continue home Hydrocodone/Acetaminophen q 6 hours as needed for pain -Morphine IV PRN pain -Bowel regimen with Colace and Miralax PRN -Zofran PRN -LR at 125mL/hr x 2L -General Surgery consultation appreciated -Will keep patient NPO for now Plan VIKY - chronic. stable. patient is compliant with CPAP -Continue CPAP qHS -Patient may use his own machine Restless leg syndrome - Patient takes both ER and IR Ropinirole. Pharmacy carries only IR formation. Patient has his medications with him -Continue home medications. Patient may take his own Ropinirole ER tablets HTN - Blood pressure at goal -Continue home Hydralazine 50mg po TID -Continue home Clonidine 0.1mg po daily History of Present Illness Chief Complaint: celluliltis left axilla Primary Care Provider: BEBE Nick Adolfo Ordoñez is a pleasant 48yo male with history of HTN, Psoriasis and VIKY on CPAP presenting from home with cellulitis in the left axilla. Patient first noted redness, pain and swelling in the left axilla on 08/12/23. He was seen at [facility] on 08/13/23 and was prescribed Doxycycline for cellulitis. He was taking Doxycycline 100mg po BID as directed but, unfortunately, the warmth, redness and pain progressed. He was seen at [facility] on 08/15/23. He was given a dose of IV Vancomycin, an I/D was performed and cultures were obtained. He was then discharged home on PO Clindamycin. He has been taking the Clindamycin as directed but his symptoms continue to progress. He now has significant pain, swelling and redness of the left axilla. He reports it is difficult to lower his arm due to pain. He has also has been having some fevers and chills at home as well as decreased appetite and nausea. He has been taking Tylenol as well as his home Hydrocodone at home with minimal improvement in pain. No prior history of cellulitis or skin/soft tissue infections. No trauma/insect bites. No known h/o MRSA. Patient is immunocompetent - not diabetic and not on any medications currently for his Psoriasis. In the ER he is afebrile, HD stable ER Course: Daptomycin Tylenol NSS Morphine Allergies Allergy/AdvReac Type Severity Reaction Status Date / Time adalimumab [From Humira] Allergy Severe rash Verified 12/01/22 20:49 celecoxib [From Celebrex] Allergy Severe Rash Verified 12/01/22 20:49 codeine Allergy Unknown Drowsy Verified 12/01/22 20:49 Sulfa (Sulfonamide Allergy Unknown Rash Verified 12/01/22 20:49 Antibiotics) Home Medications Medication Instructions Recorded Confirmed Type folic acid 1 mg tablet 1 mg PO QAM 05/21/21 12/01/22 History methotrexate sodium 2.5 mg tablet 20 mg PO WK 05/21/21 12/01/22 History multivitamin (Multiple Vitamins 1 tab PO QA 05/21/21 12/01/22 History tablet) ropinirole 4 mg tablet 4 mg PO 05/21/21 08/17/23 History turmeric root extract 500 mg 2,000 mg PO QA 05/21/21 12/01/22 History capsule fluticasone fur. 100 mcg-umeclid 2 ea inhalation QA 12/01/22 12/01/22 History 62.5 mcg-vilant 25 mcg inhalat.powder (Trelegy Ellipta) lisinopril 40 mg tablet 40 mg PO QA 12/01/22 08/17/23 History piroxicam 20 mg capsule 20 mg PO QA 12/01/22 12/01/22 History ropinirole 4 mg tablet,extended 4 mg PO 12/01/22 08/17/23 History release 24 hr clonidine HCl 0.1 mg tablet 0.1 mg PO DAILY #30 tabs 12/03/22 08/17/23 Rx clonidine HCl 0.1 mg tablet 0.1 mg PO QAM #30 tabs 12/03/22 Rx furosemide 40 mg tablet (Lasix) 40 mg PO DAILY #30 tabs 12/03/22 Rx potassium chloride 10 mEq 10 meq PO DAILY #30 caps 12/03/22 Rx capsule,extended release hydralazine 50 mg tablet 50 mg PO TID 08/17/23 08/17/23 History hydrochlorothiazide 12.5 mg tablet 12.5 mg PO DAILY 08/17/23 08/17/23 History hydrocodone 10 mg-acetaminophen 1 tab PO Q6 PRN Pain 08/17/23 08/17/23 History 325 mg tablet phentermine 37.5 mg tablet 37.5 mg PO QAM 08/17/23 08/17/23 History torsemide 20 mg tablet 20 mg PO BID 08/17/23 08/17/23 History Past Med/Surg History Medical History CHF (congestive heart failure) Psoriasis CTS (carpal tunnel syndrome) Depression Hypertension Sleep apnea Back pain Psoriatic arthritis Osteoarthritis Surgical History H/O removal of cyst History of orthopedic surgery Social History Smoking Status: Former smoker Tobacco Type: Cigarettes Smoking End Date: 01/09/2023; Hx Alcohol Use: No Hx Substance Use: No Preferred Language: Australian Communication Ability: Effective Court Operations Clerk Required: No Beliefs That Will Affect Care: None Current Living Situation: Spouse and Family Current Living Situation Comment: and daughter Other Information That Helps Us Care for You: No Feels Safe at Home: Yes Safety Concerns: Feels Safe At This Time Assistive Devices: Glasses Assistive Devices Comment: partial dentures at home Review of Systems 2 Review of Systems: All systems reviewed & are unremarkable except as noted in HPI & below Physical Exam 2 Physical Exam: General: patient non-toxic in appearance, AA&O x 4 Skin: left axilla with warmth, tenderness and redness with area of fluctuance, possible bullae formation, some yellow crusting on the wound. Wound present from prior I/D performed at OSH. HEENT: NC/AT, PERRL, EOMI, anicteric sclera, conjunctiva without injection, external ear normal to inspection and nontender, nares patent, moist mucus membranes, dentition intact, no oropharyngeal lesions, neck supple, trachea midline, no LAD, no thyromegaly, no JVD Heart: +S1/S2, regular, no m/r/g Lungs: equal air entry bilaterally, no rales/rhonchi/wheezes Abd: +BS, soft, NT/ND, no masses/organomegaly/ascites Ext: warm, 2+ pulses in UE/LE bilaterally, no clubbing/cyanosis or edema Neuro: nonfocal, patient AA&O x 4, speech intact, no facial droop, moving all extremities on command with equal strength 5/5 Results & Data Results & Data Vital Signs (Past 12 Hours) Vital Signs Temp Pulse Pulse Resp BP BP Pulse Ox 08/17/23 21:57 86 08/17/23 21:47 85 18 103/56 L 97 08/17/23 19:48 36.6 C 92 H 20 113/68 99 O2 Del Method 08/17/23 21:57 08/17/23 21:47 Room Air 08/17/23 19:48 Room Air Diagnostic Findings PG Care Time/CCT Total # of Minutes Spent Total Time Spent with Patient: Total time spent is greater than 50% in coordination of care (as documented) at patient's floor/unit and/or counseling patient: Coding Level of Care Code 38673 INT INP/OBS CARE 2/55MIN Diagnoses Abscess L02.91
[2023-08-17] MEDS: MoRPHine SULFATE 4 MG/ML 1 ML CARP\\VIAL IV STA (23:11)
[2023-08-18] MEDS ORDERED: ONDANSETRON INJ 2 MG/ML 2 ML VIAL IV PRN ×2 (00:11→10:39)
[2023-08-18] MEDS ORDERED: MoRPHine SULFATE 4 MG/ML 1 ML CARP\\VIAL IV PRN (00:11)
[2023-08-18] MEDS ORDERED: POLYETHYLENE (MIRALAX) 17 GM PACK PO PRN (00:11)
[2023-08-18] MEDS ORDERED: DOCUSATE SODIUM 100 MG CAP PO PRN (00:11)
[2023-08-18] MEDS: DAPTOmycin 375 MG in SYRINGE 0 ML IV SCH (00:14)
[2023-08-18] MEDS: LACTATED RINGER'S 1,000 ML IV SCH (00:53)
[2023-08-18] MEDS: HYDROcodone/ACETAMINOPHEN 10/325 TAB PO PRN (00:54)
[2023-08-18] MEDS: POTASSIUM CHLORIDE CRTAB 20 MEQ TABCR PO STA (00:54)
--- NOTE | 2023-08-18 00:58 | CT Scan Report ---
Exam(s): CT CHEST Without Contrast EXAM: CT Chest Without Intravenous Contrast CLINICAL HISTORY: Reason for exam: left axillary infection, ?abscess ?tracking ?gas. TECHNIQUE: Axial computed tomography images of the chest without intravenous contrast. Automated exposure control was utilized for the study. A dose lowering technique was utilized adhering to the principles of ALARA. COMPARISON: No relevant prior studies available. FINDINGS: Lungs: Unremarkable. No mass. No consolidation. Pleural space: Unremarkable. No pneumothorax. No significant effusion. Heart: Unremarkable. No cardiomegaly. No significant pericardial effusion. No significant coronary artery calcifications. Bones/joints: Unremarkable. No acute fracture. No dislocation. Soft tissues: Subcutaneous abscess in the LEFT axilla/chest wall, which measures approximately 7.6 x 5.0 cm. This contains fluid and multiple locules of air with adjacent reactive lymph nodes. The abscess is located immediately deep to the skin surface. Surgical evaluation recommended for drainage. Vasculature: Unremarkable. No thoracic aortic aneurysm. Lymph nodes: See above. Liver: Hepatic steatosis. IMPRESSION: Subcutaneous abscess in the LEFT axilla/chest wall, which measures approximately 7.6 x 5.0 cm. This contains fluid and multiple locules of air with adjacent reactive lymph nodes. The abscess is located immediately deep to the skin surface. Surgical evaluation recommended for drainage. Electronically signed by: Donald Joy MD 08/18/23 00:57 AM
[2023-08-18] MEDS: ROPINIROLE PO SCH (01:51)
[2023-08-18] MEDS: PATIENT'S OWN CONTROLLED MED 1 PO SCH (08:02)
[2023-08-18] MEDS: cloNIDine HCL 0.1 MG TAB PO SCH (08:03)
[2023-08-18] MEDS: hydrALAZINE TAB 50 MG TAB PO SCH (08:03)
[2023-08-18] MEDS: PHENTERMINE PO SCH (08:14)
[2023-08-18 08:17] LABS: Calcium 8.8 mg/dl (8.6-10.3); Creatinine Clr Calc Pharmacy 81.7 ml/min; Est GFR (African American) 66.8 ml/min; Est GFR (Non-African American) 57.7 ml/min; Potassium 3.5 mmol/L (3.5-5.1)
[2023-08-18 08:18] LABS: Hematocrit (blood only) 36.8 % (42.0-52.0); Hemoglobin 12.6 g/dl (14.0-18.0); Mean Corpuscular Hgb Conc 34.2 g/dL (32.0-36.0); Mean Corpuscular Volume 84.6 fL (80.0-100.0); Mean Platelet Volume 9.9 fL (9.4-12.4); Platelet Count 282 K/uL (130-400); RDW Coefficient of Variation 12.8 % (11.5-14.5); RDW Standard Deviation 39.1 fL (36.4-46.3); Red Blood Count 4.35 M/uL (4.70-6.10); White Blood Count 14.34 K/ul (4.8-10.8)
--- NOTE | 2023-08-18 08:22 | Hospitalist Progress Note ---
Date of Service August 18, 2023 Assessment & Plan (1) Abscess: Plan: 48 y/o male with worsening left axillary abscess. Patient started on doxycycline / by an Urgent Care. He was seen at [place] ED / - he was given a dose a vancomycin, the abscess was drained with minimal output, and patient was started on clindamycin. NGTD from cultures at [place]. Symptoms progressive with fevers/chills/nausea prompting ED presentation. Patient started on dapto. Erythema/pain improved. Started draining overnight I&D today with gen surg - foul smelling, consider pseudomonas coverage if showing signs of sepsis f/u blood and wound cultures continue tylenol/hydrocodone Q6H PRN morphine IV PRN continue bowel regimen - colace/miralax PRN zofran PRN monitor for signs of sepsis VIKY - chronic. stable. patient is compliant with CPAP -Continue CPAP qHS -Patient may use his own machine Restless leg syndrome - Patient takes both ER and IR Ropinirole. Pharmacy carries only IR formation. Patient has his medications with him -Continue home medications. Patient may take his own Ropinirole ER tablets HTN - Blood pressure at goal. Holding lisinopril HCTZ Lasix as unconfirmed medications. Continue home clonidine 0.1 mg PO and hydralazine 50 mg TID. Code status: full DVT ppx: ambulatory, holding chemo ppx for procedure FENGI: given 2L LR Dispo: MedSurg (2) Hypertension: (3) Restless leg syndrome: (4) Obstructive sleep apnea: Admission and Anticipated Discharge Date Admission Date: August 17, 2023 Supervising Physician Co-Signing Physician Notes I personally examined the patient and verified all frias points of history and exam, discussed case, and agree with decision making with Dr Soto seen postop. Feeling better. Updated to the best my ability and his satisfaction. Family was on speaker phone at the timeupdated them as well. Vitals noted, in general he is awake and alert pleasant no distress. HEENT normocephalic atraumatic mucous membranes moist. Breathing unlabored no accessory muscle use good effort. Left axilla has a large area that is dressed, appears to be a bit of serosanguineous drainage on the dressing, not saturated. No tracking erythema outside of the dressing. Gram stain noted to have gram- negative rods as well as gram-positive cocci. White count improved. Abscess, cellulitis, probable sepsis present on admissionfailed outpatient treatment either due to the need for more definitive source control (which has now been affected) versus that he truly does have gram-negatives causing a skin infection (which is obviously more rareand understandably his prior antibiotics were directed towards gram-positives). While his white count and heart rate would imply possible sepsis on admission, given that it was not severe sepsis/septic shock, will transition antibiotics to ceftriaxone to cover for the gram-negatives that are showing, and follow cultures. Appreciate surgical assistance. DVT prophylaxisambulation Subjective Seen at bedside this AM. Abscess starting draining overnight. Feeling otherwise well. Some improvement in pain. Redness/swelling has lessened some as well. No f/c/n/v/CP/SOB Review of Systems 2 Review of Systems: See HPI Physical Exam 2 Physical Exam: General: patient non-toxic in appearance Skin: left axilla with warmth, erythema has decreased in size, swelling present, some yellow crusting on the wound and active draining HEENT: NC/AT, PERRL, EOMI, anicteric sclera, conjunctiva without injection, external ear normal to inspection, nares patent, moist mucus membranes, dentition intact, neck supple, trachea midline Heart: +S1/S2, regular, no m/r/g Lungs: equal air entry bilaterally, no rales/rhonchi/wheezes Abd: non-distended Ext: warm, well perfused Neuro: nonfocal, patient AA&O x 4, speech intact, no facial droop, moving all extremities on command Results & Data Results & Data Vital Signs (Past 12 Hours) Vital Signs Temp Pulse Pulse Resp BP Pulse Ox O2 Del Method 08/18/23 07:39 37.2 C 67 18 128/71 94 Room Air 08/18/23 00:30 Room Air 08/18/23 00:06 36.4 C L 74 20 119/75 97 Room Air 08/17/23 23:00 68 16 118/67 94 Room Air 08/17/23 21:57 86 08/17/23 21:47 85 18 103/56 L 97 Room Air Laboratory Results 08/18/23 07:34 08/18/23 07:[address] 08/17/23 23:01 FINDINGS: Lungs: Unremarkable. No mass. No consolidation. Pleural space: Unremarkable. No pneumothorax. No significant effusion. Heart: Unremarkable. No cardiomegaly. No significant pericardial effusion. No significant coronary artery calcifications. Bones/joints: Unremarkable. No acute fracture. No dislocation. Soft tissues: Subcutaneous abscess in the LEFT axilla/chest wall, which measures approximately 7.6 x 5.0 cm. This contains fluid and multiple locules of air with adjacent reactive lymph nodes. The abscess is located immediately deep to the skin surface. Surgical evaluation recommended for drainage. Vasculature: Unremarkable. No thoracic aortic aneurysm. Lymph nodes: See above. Liver: Hepatic steatosis. IMPRESSION: Subcutaneous abscess in the LEFT axilla/chest wall, which measures approximately 7.6 x 5.0 cm. This contains fluid and multiple locules of air with adjacent reactive lymph nodes. The abscess is located immediately deep to the skin surface. Surgical evaluation recommended for drainage. Resident Activity Tracking Resident Involvement: Resident Care Provided Care Provided: Adult [facility]
--- NOTE | 2023-08-18 08:38 | Surgery Consultation ---
Date of Consultation August 18, 2023 Assessment & Plan (1) Abscess: This a 48y M with a PMH of obesity, VKIY, psoriasis, and restless leg syndrome who presents to the [facility] ED on 08/17/23 with pain of his left axillary region that has been present since last satuda. He has been evaluated both at urgent care and prescribed po abx and at [facility] where it was incised and drained without relief. The area is becoming larger and more painful for him. Therefore he presented to our ER yesterday for further evaluation. A CT was obtained that revealed subcutaneous abscess in the LEFT axilla/chest wall, which measures approximately 7.6 x 5.0 cm. The area started to drain this morning and his pain is slightly improved now that this has happened, rating it a 3-4/10. Today's labs show WBC 14(16), Hbg 12, Cr 1.4. Vital signs are stable, pt afebrile On exam patient's left axillary area has a large area of erythema noted, with fluctuance consistent with fluid collection underneath the skin. with a central area of overlying skin necrosis and serous/bloody drainage. This is tender to palpation. Given extent and size of abscess we will recommend taking the patient to the OR for incision and drainage. Patient is agreeable to plan. Dr. Garcia will be by to obtain consent. Continue NPO and IV abx. Supervising Physician Co-Signing Physician Notes pnt S&E, labs and imaging reviewed, agree w/ above. Left axillary abscess x 1 week, started draining last night. CT w/ undrained fluid. left axillary abscess plan for incision and drainage of left axillary abscess risks discussed to include bleeding, infection, recurrence, prolonged wound healing, damage to surrounding structures History of Present Illness Attending Physician: Delonte Black DO History of Present Illness This a 48y M with a PMH of obesity, VIKY, psoriasis, and restless leg syndrome who presents to the [facility] ED on 08/17/23 with pain of his left axillary region. Patient states the pain started last Tuesday AM and was becoming red and painful. He went to urgent care where they prescribed him a course of PO abx. Unfortunately the area continued to worsen and he went to [facility] on Tuesday where they incised and drained the area concerning for abscess but he says they did not get any fluid out. He was sent home from the ER and told to continue on po abx. He had packing that came out on Tuesday. Unfortunately the patient continued with pain and worsening swelling in the area. Therefore he presented to our ER yesterday for further evaluation. A CT was obtained that revealed subcutaneous abscess in the LEFT axilla/chest wall, which measures approximately 7.6 x 5.0 cm. The patient states he had a pilonidal abscess in the past, but no abscess/boils quite like this. He denies any injury to the area, shaving, or bug bites. Denies current fevers/chills but says that he had them since the start of this. Denies CP/SOB, nausea/vomiting. The area started to drain this morning and his pain is slightly improved now that this has happened, rating it a 3-4/10. Allergies Allergy/AdvReac Type Severity Reaction Status Date / Time adalimumab [From Humira] Allergy Severe rash Verified 12/01/22 20:49 celecoxib [From Celebrex] Allergy Severe Rash Verified 12/01/22 20:49 codeine Allergy Unknown Drowsy Verified 12/01/22 20:49 Sulfa (Sulfonamide Allergy Unknown Rash Verified 12/01/22 20:49 Antibiotics) Home Medications Medication Instructions Recorded Confirmed Type folic acid 1 mg tablet 1 mg PO QAM 05/21/21 12/01/22 History methotrexate sodium 2.5 mg tablet 20 mg PO WK 05/21/21 12/01/22 History multivitamin (Multiple Vitamins 1 tab PO QAM 05/21/21 12/01/22 History tablet) ropinirole 4 mg tablet 4 mg PO HS 05/21/21 08/17/23 History turmeric root extract 500 mg 2,000 mg PO QAM 05/21/21 12/01/22 History capsule fluticasone fur. 100 mcg-umeclid 2 ea inhalation QAM 12/01/22 12/01/22 History 62.5 mcg-vilant 25 mcg inhalat.powder (Trelegy Ellipta) lisinopril 40 mg tablet 40 mg PO QAM 12/01/22 08/17/23 History piroxicam 20 mg capsule 20 mg PO QAM 12/01/22 12/01/22 History ropinirole 4 mg tablet,extended 4 mg PO HS 12/01/22 08/17/23 History release 24 hr clonidine HCl 0.1 mg tablet 0.1 mg PO DAILY #30 tabs 12/03/22 08/17/23 Rx clonidine HCl 0.1 mg tablet 0.1 mg PO QAM #30 tabs 12/03/22 Rx furosemide 40 mg tablet (Lasix) 40 mg PO DAILY #30 tabs 12/03/22 Rx potassium chloride 10 mEq 10 meq PO DAILY #30 caps 12/03/22 Rx capsule,extended release hydralazine 50 mg tablet 50 mg PO TID 08/17/23 08/17/23 History hydrochlorothiazide 12.5 mg tablet 12.5 mg PO DAILY 08/17/23 08/17/23 History hydrocodone 10 mg-acetaminophen 1 tab PO Q6 PRN Pain 08/17/23 08/17/23 History 325 mg tablet phentermine 37.5 mg tablet 37.5 mg PO QAM 08/17/23 08/17/23 History torsemide 20 mg tablet 20 mg PO BID 08/17/23 08/17/23 History Patient History Medical History CHF (congestive heart failure) Psoriasis CTS (carpal tunnel syndrome) Depression Hypertension Sleep apnea Back pain Psoriatic arthritis Osteoarthritis Surgical History H/O removal of cyst History of orthopedic surgery Social History Smoking Status: Former smoker Tobacco Type: Cigarettes Smoking End Date: 01/09/2023; Hx Alcohol Use: No Hx Substance Use: No Preferred Language: Australian Communication Ability: Effective Community Marketing Manager Required: No Beliefs That Will Affect Care: None Current Living Situation: Spouse and Family Current Living Situation Comment: and daughter Other Information That Helps Us Care for You: No Feels Safe at Home: Yes Safety Concerns: Feels Safe At This Time Assistive Devices: CPAP Assistive Devices Comment: partial dentures at home Review of Systems Constitutional: no fever (none of recent, but was present) and no chills (none of recent, but was present) Respiratory: no dyspnea Cardiovascular: no chest pain Gastrointestinal: no abdominal pain, no nausea and no vomiting Integumentary: left underarm pain, swelling, and drainage Physical Exam Physical Exam: awake/alert, no distress Constitutional: well developed, well nourished and + obese Respiratory: normal respiratory effort Gastrointestinal (Abdomen): Percussion/Palpation: abdomen soft Skin: left axillary abscess noted, large area of erythema noted in the L underarm region with a central area of overlying skin necrosis and serous/bloody drainage. tender to palpation Results & Data Vital Signs (Past 12 Hours) Vital Signs Temp Pulse Pulse Resp BP Pulse Ox O2 Del Method 08/18/23 07:39 99.0 F 67 18 128/71 94 Room Air 08/18/23 00:30 Room Air 08/18/23 00:06 97.5 F L 74 20 119/75 97 Room Air 08/17/23 23:00 68 16 118/67 94 Room Air 08/17/23 21:57 86 08/17/23 21:47 85 18 103/56 L 97 Room Air Diagnostic Findings Exam(s): CT CHEST Without Contrast EXAM: CT Chest Without Intravenous Contrast CLINICAL HISTORY: Reason for exam: left axillary infection, ?abscess ?tracking ?gas. TECHNIQUE: Axial computed tomography images of the chest without intravenous contrast. Automated exposure control was utilized for the study. A dose lowering technique was utilized adhering to the principles of ALARA. COMPARISON: No relevant prior studies available. FINDINGS: Lungs: Unremarkable. No mass. No consolidation. Pleural space: Unremarkable. No pneumothorax. No significant effusion. Heart: Unremarkable. No cardiomegaly. No significant pericardial effusion. No significant coronary artery calcifications. Bones/joints: Unremarkable. No acute fracture. No dislocation. Soft tissues: Subcutaneous abscess in the LEFT axilla/chest wall, which measures approximately 7.6 x 5.0 cm. This contains fluid and multiple locules of air with adjacent reactive lymph nodes. The abscess is located immediately deep to the skin surface. Surgical evaluation recommended for drainage. Vasculature: Unremarkable. No thoracic aortic aneurysm. Lymph nodes: See above. Liver: Hepatic steatosis. IMPRESSION: Subcutaneous abscess in the LEFT axilla/chest wall, which measures approximately 7.6 x 5.0 cm. This contains fluid and multiple locules of air with adjacent reactive lymph nodes. The abscess is located immediately deep to the skin surface. Surgical evaluation recommended for drainage. Electronically signed by: Donald Joy MD 08/18/23 00:57 AM PG Care Time/CCT Total # of Minutes Spent Total Time Spent with Patient: Total time spent is greater than 50% in coordination of care (as documented) at patient's floor/unit and/or counseling patient: Coding Level of Care Code 58710 IN/OBS CONSULT LVL 3,45M Diagnoses Abscess L02.91
--- NOTE | 2023-08-18 09:12 | Anesthesiology Consultation ---
Date of Service August 18, 2023 Assessment & Plan Chart Review Chart Review: entry tech initiated History Surgery Operation Date: 08/18/23 09:10 Proposed Procedures p Incision and Drainage Left Axillary Abscess - Armand Garcia DO, FACS Height/Weight Height: 5 ft 8 in Weight: 127.8 kg Allergies Allergy/AdvReac Type Severity Reaction Status Date / Time adalimumab [From Humira] Allergy Severe rash Verified 12/01/22 20:49 celecoxib [From Celebrex] Allergy Severe Rash Verified 12/01/22 20:49 codeine Allergy Unknown Drowsy Verified 12/01/22 20:49 Sulfa (Sulfonamide Allergy Unknown Rash Verified 12/01/22 20:49 Antibiotics) Medications Home Medications Medication Instructions Recorded Confirmed Last Taken folic acid 1 mg tablet 1 mg PO QAM 05/21/21 12/01/22 12/01/22 methotrexate sodium 2.5 mg tablet 20 mg PO WK 05/21/21 12/01/22 11/27/22 multivitamin (Multiple Vitamins 1 tab PO QAM 05/21/21 12/01/22 12/01/22 tablet) ropinirole 4 mg tablet 4 mg PO 05/21/21 08/17/23 12/01/22 turmeric root extract 500 mg 2,000 mg PO QAM 05/21/21 12/01/22 11/30/22 capsule fluticasone fur. 100 mcg-umeclid 2 ea inhalation QA 12/01/22 12/01/22 12/01/22 62.5 mcg-vilant 25 mcg inhalat.powder (Trelegy Ellipta) lisinopril 40 mg tablet 40 mg PO QAM 12/01/22 08/17/23 12/01/22 piroxicam 20 mg capsule 20 mg PO QAM 12/01/22 12/01/22 12/01/22 ropinirole 4 mg tablet,extended 4 mg PO 12/01/22 08/17/23 12/01/22 release 24 hr clonidine HCl 0.1 mg tablet 0.1 mg PO DAILY #30 tabs 12/03/22 08/17/23 Unknown clonidine HCl 0.1 mg tablet 0.1 mg PO QAM #30 tabs 12/03/22 Unknown furosemide 40 mg tablet (Lasix) 40 mg PO DAILY #30 tabs 12/03/22 Unknown potassium chloride 10 mEq 10 meq PO DAILY #30 caps 12/03/22 Unknown capsule,extended release hydralazine 50 mg tablet 50 mg PO TID 08/17/23 08/17/23 Unknown hydrochlorothiazide 12.5 mg tablet 12.5 mg PO DAILY 08/17/23 08/17/23 Unknown hydrocodone 10 mg-acetaminophen 1 tab PO Q6 PRN Pain 08/17/23 08/17/23 Unknown 325 mg tablet phentermine 37.5 mg tablet 37.5 mg PO QAM 08/17/23 08/17/23 Unknown torsemide 20 mg tablet 20 mg PO BID 08/17/23 08/17/23 Unknown Active Medications Generic Name Dose Route Start Last Admin Trade Name Freq PRN Reason Stop Dose Admin Hydrocodone Bitart/Acetaminophen 1 tab 08/18/23 00:11 08/18/23 08:02 Hydrocodone/Acetaminophen 10/325 Tab PO 09/01/23 00:10 1 tab Q6 PRN Administration Pain Clonidine HCl 0.1 mg 08/18/23 09:00 08/18/23 08:03 Clonidine Hcl 0.1 Mg Tab PO 09/17/23 08:59 0.1 mg DAILY NICHOLAS Administration Hydralazine HCl 50 mg 08/18/23 09:00 08/18/23 08:03 Hydralazine Tab 50 Mg Tab PO 09/17/23 08:59 50 mg TID NICHOLAS Administration Lactated Ringer's 1,000 mls @ 125 mls/hr 08/18/23 00:11 08/18/23 09:10 Lr IV 08/18/23 16:10 125 mls/hr .Q8H NICHOLAS Administration *Ropinirole*Non- 1 each 08/18/23 01:30 08/18/23 01:51 Formulary Patient's PO 09/17/23 01:14 Not Given Own Med HS NICHOLAS *Phentermine*Non- 1 each 08/18/23 07:30 08/18/23 08:14 Formulary Patient's PO 09/17/23 07:29 1 each Own Med QDB NICHOLAS Administration Non-Formulary Medication 1 each 08/18/23 07:30 08/18/23 08:02 Patient's Own Controlled Med 1 PO 09/01/23 07:29 1 each QDB NICHOLAS Administration Past Medical History Medical History CHF (congestive heart failure) Psoriasis CTS (carpal tunnel syndrome) Depression Hypertension Sleep apnea Back pain Psoriatic arthritis Osteoarthritis Past Surgical History Surgical History H/O removal of cyst History of orthopedic surgery Social History Smoking Status: Former smoker Smoking End Date: 01/09/2023 Hx Alcohol Use: No Hx Substance Use: No Physical Exam Vital Signs Last Vital Signs Temp 99.0 F 08/18/23 07:39 Pulse 67 08/18/23 07:39 Resp 18 08/18/23 07:39 BP 128/71 08/18/23 07:39 Pulse Ox 94 08/18/23 07:39 O2 Del Method Room Air 08/18/23 07:39 Testing Laboratory Results 08/18/23 07:34 08/18/23 07:34 Electrocardiogram Date: 12/06/22 Normal sinus rhythm, rate 69 bpm Possible Left atrial enlargement Left ventricular hypertrophy with repolarization abnormality Abnormal ECG When compared with ECG of 01-DEC-2022 17:53, No significant change was found Confirmed by Kale Zimmerman ([id number]) on 12/10/2022 5:56:57 AM Echocardiogram Date: 12/02/22 LV is normal in size LV systolic function is normal EF 60-65% LV wall motion is normal Mod concentric LVH RV is normal in size and function No significant valvular disease on very technically limited Doppler
[2023-08-18] MEDS ORDERED: MIDAZOLAM HCL 1 MG/ML 2ML VIAL ONE (10:33)
[2023-08-18] MEDS ORDERED: fentaNYL citrate PF 100 MCG/2 ML VIAL ONE ×2 (10:34→11:28)
[2023-08-18] MEDS ORDERED: fentaNYL citrate PF 100 MCG/2 ML VIAL IV PRN (10:39)
[2023-08-18] MEDS ORDERED: ePHEDrine sulfate 50 MG/ML AMP IV PRN (10:39)
[2023-08-18] MEDS ORDERED: ATROPINE SULFATE 0.1 MG/ML 10ML SYR IV PRN (10:39)
[2023-08-18] MEDS ORDERED: PROPOFOL IV EMULSION 10 MG/ML 20 ML VIAL IV ONE (11:28)
[2023-08-18] MEDS ORDERED: ONDANSETRON INJ 2 MG/ML 2 ML VIAL ONE (11:28)
[2023-08-18] MEDS: BUPIVACAINE 0.5 % 5 MG/1 ML MPF 30ML VIAL ONE (11:56)
[2023-08-18] MEDS: BUPIVACAINE LIPOSOME 1.3% 266 MG/20 ML VIAL ONE (11:57)
--- NOTE | 2023-08-18 12:07 | Operative Report ---
PG Post Operative Report Pre & Post Diagnosis Operation Date: 08/18/23 09:10 Pre-Op Diagnosis: LEFT AXILLA INFECTION Post-Op Diagnosis: LEFT AXILLA INFECTION I identified the patient and participated in the time-out.: Yes Procedure Operation Date: 08/18/23 09:10 Actual Procedures p Incision and Drainage Left Axillary Abscess(Left) - Armand Garcia DO, FA CS Surgeon Armand Garcia DO, FACS Postdoctoral Research Associate Erin Duncan Estimated Blood Loss 10 Findings Consistent with Post-Op Diagnosis I&D performed, approximately 30 cc of purulent fluid drained, packed with Kerlix, Exparel injected Specimens Left axillary abscess fluid for culture Left axillary abscess Anesthesia Type General Complications none Disposition Accompanied Patient To Recovery: No Disposition: Recovery Room Indications 48-year-old male admitted with left axillary abscess and surrounding cellulitis, plan for incision and drainage of left axillary abscess. The risks of the procedure were discussed, all questions were answered, and the patient agreed to proceed with surgery as planned. Description of Procedure The patient was properly identified, consented, and taken to the operating room where he was placed in the supine position. General endotracheal anesthesia was induced. SCDs and a safety belt were placed. Preoperative antibiotics were administered. The patient's left chest and axilla was prepped and draped in the standard sterile fashion. Surgical timeout was performed and all parties were in agreement that this was the correct patient and procedure to be performed and we continued as planned. An elliptically oriented incision was made surrounding the necrotic tissue and deepened down through the subcutaneous tissue. The axillary abscess cavity was opened and about 30 cc of foul-smelling purulent drainage was expressed. This was sent for culture. The wound was then examined and all loculations were broken up. The roof of the ulcer was sent for pathology. The wound was irrigated and hemostasis achieved. Necrotic fat was debrided. The wound was then packed with 2 inch Kerlix gauze. Exparel was injected. Fluffed gauze, an ABD, and tape were placed. The patient was extubated in the operating room and taken to the PACU where he recovered without apparent incident. All sponge, instrument and needle counts were correct at the conclusion of the procedure. The patient tolerated the procedure well. The nurse practitioner was present and scrubbed for the entire the procedure. She was critical in positioning the patient, prepping and draping, retraction and exposure, drainage of the abscess, placement of dressings. I attest to the content of the Intraoperative Record and any orders documented therein. Any exceptions are noted below.
--- NOTE | 2023-08-18 12:36 | Anesthesiology Progress Note ---
Date of Service August 18, 2023 Anesthesia Post Procedure Vital Signs Vital Signs: Temp Pulse Pulse Pulse Resp BP BP 08/18/23 12:20 70 8 L 136/79 08/18/23 12:12 98.1 F 76 15 122/84 08/18/23 10:52 98.1 F 74 18 133/69 08/18/23 07:39 99.0 F 67 18 128/71 08/18/23 00:30 08/18/23 00:06 97.5 F L 74 20 119/75 08/17/23 23:00 68 16 118/67 08/17/23 21:57 86 08/17/23 21:47 85 18 103/56 L 08/17/23 19:48 97.8 F 92 H 20 113/68 Pulse Ox O2 Del Method 08/18/23 12:20 100 Room Air 08/18/23 12:12 100 Room Air 08/18/23 10:52 96 Room Air 08/18/23 07:39 94 Room Air 08/18/23 00:30 Room Air 08/18/23 00:06 97 Room Air 08/17/23 23:00 94 Room Air 08/17/23 21:57 08/17/23 21:47 97 Room Air 08/17/23 19:48 99 Room Air Pain Intensity Left Axilla: Pain Intensity: 3 Transfer of Care Handoff Completed per policy Notes Mental Status: alert / awake / arousable and participated in evaluation Patient Amnestic to Procedure: Yes Nausea / Vomiting: adequately controlled Pain: adequately controlled Airway Patency, RR, SpO2: stable & adequate BP & HR: stable & adequate Hydration State: stable & adequate Anesthetic Complications: no major complications apparent and Pt Satisfied with anesthetic care
[2023-08-18] MEDS: cefTRIAXone SODIUM 2,000 MG/50 ML BAG IV SCH (18:38)
--- NOTE | 2023-08-18 19:15 | Billing Data ---
Date of Service August 18, 2023 Coding Level of Care Code 06673 SUB INP/OBS CARE
[2023-08-18] MEDS: rOPINIRole HCL 2 MG TABLET PO SCH (20:41)
[2023-08-19] MEDS: DAPTOmycin 375 MG in SYRINGE 0 ML IV SCH (00:18)
[2023-08-19 07:33] LABS: Basophils # (auto) 0.07 K/uL (0.00-0.20); Basophils % (auto) 0.6 %; Eosinophils # (auto) 0.29 K/uL (0.00-0.50); Eosinophils % (auto) 2.4 %; Hematocrit (blood only) 33.9 % (42.0-52.0); Hemoglobin 11.7 g/dl (14.0-18.0); Immature Granulocytes # (auto) 0.04 K/uL (0.01-0.20); Immature Granulocytes % (auto) 0.3 %; Lymphocytes # (auto) 2.44 K/uL (1.20-3.40); Lymphocytes % (auto) 20.4 %; Mean Corpuscular Hemoglobin 29.2 pg (25.0-34.0); Mean Corpuscular Hgb Conc 34.5 g/dL (32.0-36.0); Mean Corpuscular Volume 84.5 fL (80.0-100.0); Monocytes # (auto) 1.58 K/uL (0.11-0.59); Monocytes % (auto) 13.2 %; Neutrophils # (auto) 7.52 K/uL (1.40-6.50); Neutrophils % (auto) 63.1 %; Platelet Count 293 K/uL (130-400); RDW Coefficient of Variation 12.8 % (11.5-14.5); RDW Standard Deviation 39.9 fL (36.4-46.3); Red Blood Count 4.01 M/uL (4.70-6.10); White Blood Count 11.94 K/ul (4.8-10.8)
[2023-08-19 08:51] LABS: BUN Creatinine Ratio 18.2 (10-20); Calcium 9.1 mg/dl (8.6-10.3); Creatinine Clr Calc Pharmacy 104.7 ml/min; Est GFR (African American) 90.2 ml/min; Est GFR (Non-African American) 77.9 ml/min; Potassium 3.8 mmol/L (3.5-5.1)
--- NOTE | 2023-08-19 11:07 | Surgery Progress Note ---
Date of Service August 19, 2023 Assessment & Plan (1) Abscess: Plan: POD 1 Incision and Drainage Left Axillary Abscess Dressing taken down , packing removed New NSS soaked kerlix packing applied, covered with dry 4x4, ABD and tape. Nursing can change daily and repack Patient can do daily drsg changes at home Patient can F/u o/p with Dr. Garcia in 2 weeks Continue course of antibiotics Will sign off call with questions or concerns Admission and Anticipated Discharge Date Admission Date: August 17, 2023 Supervising Physician Co-Signing Physician Notes pnt S&E, agree w/ above. POD1 I&D left axillary abscess, feels better. wbc downtrending. dressing changed, still with cellulitis but improving. okay for d/c from surgery standpoint. local wound care w/ wtd dressing changes. f/u in 2 weeks. oral abx. Subjective pt doing well pain tolerable Review of Systems Constitutional: no fever and no chills Respiratory: no dyspnea Cardiovascular: no chest pain Integumentary: + wounds Left axilla post operation Physical Exam Physical Exam: alert oriented Constitutional: cooperative and comfortable; no acute distress Respiratory: normal respiratory effort and able to speak in complete sentences; no respiratory distress Cardiovascular: Rate/Rhythm: regular rate Skin: Left axilla wound Results & Data Vital Signs (Past 12 Hours) Vital Signs Temp Pulse Resp BP Pulse Ox O2 Del Method 08/19/23 07:36 97.7 F 68 18 143/82 H 98 Room Air 08/19/23 03:51 97.9 F 65 16 141/84 H 98 Room Air PG Care Time/CCT Total # of Minutes Spent Total Time Spent with Patient: Total time spent is greater than 50% in coordination of care (as documented) at patient's floor/unit and/or counseling patient: Coding Level of Care Code 05500 Post Operative Follow-Up Diagnoses Abscess L02.91
[2023-08-19] MEDS: MoRPHine SULFATE 2 MG/ML CARP IV PRN (11:27)
--- NOTE | 2023-08-19 16:33 | Discharge Summary ---
Date of Service August 19, 2023 Admission HPI Per Admitting Provider Adolfo Ordoñez is a pleasant 48yo male with history of HTN, Psoriasis and VIKY on CPAP presenting from home with cellulitis in the left axilla. Patient first noted redness, pain and swelling in the left axilla on 08/12/23. He was seen at [facility] on 08/13/23 and was prescribed Doxycycline for cellulitis. He was taking Doxycycline 100mg po BID as directed but, unfortunately, the warmth, redness and pain progressed. He was seen at [facility] on 08/15/23. He was given a dose of IV Vancomycin, an I/D was performed and cultures were obtained. He was then discharged home on PO Clindamycin. He has been taking the Clindamycin as directed but his symptoms continue to progress. He now has significant pain, swelling and redness of the left axilla. He reports it is difficult to lower his arm due to pain. He has also has been having some fevers and chills at home as well as decreased appetite and nausea. He has been taking Tylenol as well as his home Hydrocodone at home with minimal improvement in pain. No prior history of cellulitis or skin/soft tissue infections. No trauma/insect bites. No known h/o MRSA. Patient is immunocompetent - not diabetic and not on any medications currently for his Psoriasis. In the ER he is afebrile, HD stable ER Course: Daptomycin Tylenol NSS Morphine Principal Diagnosis Abscess Discharge Exam Constitutional well developed, well nourished, + obese, cooperative and comfortable; no acute distress ENKY Mallampati Class: III Neck normal visual inspection Respiratory normal respiratory effort and able to speak in complete sentences; no respiratory distress Auscultation: lungs clear to auscultation bilaterally Cardiovascular Rate/Rhythm: regular rate and regular rhythm Heart Sounds: no murmur Gastrointestinal (Abdomen) Percussion/Palpation: abdomen soft Musculoskeletal Spine: normal cervical ROM Skin L axillary abscess now bandaged s/p I/D Psychiatric Orientation: alert and oriented x 3 Discharge Data Allergies Allergy/AdvReac Type Severity Reaction Status Date / Time adalimumab [From Humira] Allergy Severe rash Verified 12/01/22 20:49 celecoxib [From Celebrex] Allergy Severe Rash Verified 12/01/22 20:49 codeine Allergy Unknown Drowsy Verified 12/01/22 20:49 Sulfa (Sulfonamide Allergy Unknown Rash Verified 12/01/22 20:49 Antibiotics) Consultations 08/17/23 22:13 ED Decision to Admit Stat 08/18/23 01:59 Consult General Surgery Routine Procedures Performed Operation Date: 08/18/23 09:10 Actual Procedures p Incision and Drainage Left Axillary Abscess(Left) - Armand Garcia DO, FACS Ordered Studies 08/17/23 23:01 CT chest diagnostic wo con Stat Hospital Course (1) Abscess: 48 y/o male with worsening left axillary abscess. Patient started on doxycycline 08/11 by an Urgent Care. He was seen at [place] ED 08/14 - he was given a dose a vancomycin, the abscess was drained with minimal output, and patient was started on clindamycin. NGTD from cultures at [place]. Symptoms progressive with fevers/chills/nausea prompting ED presentation. Patient started on dapto. Erythema/pain improved. Started draining overnight Patient was seen in the hospital for concern of left axillary abscess. Patient was taken to the operating room by general surgery who performed an incision and drainage. Cultures were taken with Gram stain demonstrating many gram-negative bacilli and many gram-positive cocci. This may explain why the patient was not having resolution of his infection despite being on multiple antibiotics covering for MRSA and gram-positive bacteria. We suspect at this time that it is an E. coli or similar infection and we are sending him on a course of cefdinir to cover gram-negative's and gram-positive's. There is a possibility that the culture may grow Pseudomonas (which is pending at the time of discharge) but to prevent risk of complications with ciprofloxacin such as C. difficile infection, tendinopathy, and QT prolongation, decided to withhold and last cultures were to grow Pseudomonas. Patient will take a 10-day course total. Patient otherwise to return on home medications and he is to have wound nurse come to the home for packing changes. Otherwise patient will change bandage daily on his own and will have follow-up with general surgery and PCP. VIKY - chronic. stable. patient is compliant with CPAP -Continue CPAP qHS -Patient may use his own machine Restless leg syndrome - Patient takes both ER and IR Ropinirole. Pharmacy carries only IR formation. Patient has his medications with him -Continue home medications. Patient may take his own Ropinirole ER tablets HTN - Blood pressure at goal. Continue home meds. Code status: full (2) Hypertension: (3) Restless leg syndrome: (4) Obstructive sleep apnea: Total Time Total Time Spent Total Time Spent (In Minutes): <30 Discharge Plan Discharge Items Patient Disposition: Home - Self-Care Reason For Visit: LEFT AXILLA INFECTION Discharge Diagnosis: incision and drainage of left axillary abscess Activity: Per Instructions section Lifting: No more than 25 pounds Bathing Comment: may shower Exercise/Sports: Wait until after follow-up appointment Driving/Machine Use: no driving while on narcotics for pain Non-emergency contact: Primary Care Provider and Surgeon Call non-emergency contact if: you have any medication questions, you have a fever, your temperature is above 101.5, your wound has increased redness, your wound has increased drainage and your wound pain has increased Follow-up/Referrals: Armand Garcia DO, FACS [Physician] - 09/01/23 11:15 am (Please call to schedule follow up in clinic within 2 weeks ) Daiana Hall CRNP [Primary Care Provider] - (OFFICE IS CLOSED TODAY 08/19/23; PLEASE CALL AND SCHEDULE A HOSPITAL FOLLOW VISIT IN 7-10 BUSINESS DAYS. ) Diet: Regular Addtl Attending Provider Instructions: Pack wound once daily with dry gauze, cover with 4x4 gauze, ABD pad, and medical tape. Change daily and as needed Complete the full course of antibiotic prescribed to you Pending Studies at Discharge: No Stand-Alone Forms: My [facility] opendorse, Smoking Cessation Medications and DC Order Prescriptions: New cefdinir 300 mg capsule 300 mg PO BID Qty: 16 0RF Continued methotrexate sodium 2.5 mg tablet 20 mg PO WK Rx Instructions: tuesday 8 tablets folic acid 1 mg tablet 1 mg PO QAM multivitamin [Multiple Vitamins] Tablet 1 tab PO QAM ropinirole 4 mg tablet 4 mg PO HS turmeric root extract 500 mg capsule 2,000 mg PO QAM ropinirole 4 mg tablet extended release 24 hr 4 mg PO HS lisinopril 40 mg tablet 40 mg PO QAM piroxicam 20 mg capsule 20 mg PO QAM Trelegy Ellipta 100-62.5-25 mcg blister with device 2 ea INHALATION QAM clonidine HCl 0.1 mg Tablet 0.1 mg PO QAM Qty: 30 0RF furosemide [Lasix] 40 mg tablet 40 mg PO DAILY Qty: 30 0RF potassium chloride 10 mEq capsule, extended release 10 meq PO DAILY Qty: 30 0RF clonidine HCl 0.1 mg tablet 0.1 mg PO DAILY Qty: 30 0RF torsemide 20 mg tablet 20 mg PO BID phentermine 37.5 mg tablet 37.5 mg PO QAM Rx Instructions: Before breakfast hydrocodone-acetaminophen 10-325 mg tablet 1 tab PO Q6 PRN (Reason: Pain) hydralazine 50 mg tablet 50 mg PO TID hydrochlorothiazide 12.5 mg tablet 12.5 mg PO DAILY Discharge Orders: Discharge Order (Routine); Ordered 08/19/23 Ordered By: Delonte Black Admission Data Admit Date/Time: 08/17/23 23:01 Attending Provider: Delonte Black Admit Provider: Marycarmen Summers Primary Care Provider: Daiana Hall Other Providers: Marycarmen Summers; Armand Garcia.; [facility] Other Interventions: Discharge Summary Assessment (RN) Last Done: 08/19/23 16:04 Supervising Physician Co-Signing Physician Notes I personally examined the patient and verified all frias points of history and exam, discussed case, and agree with decision making with Dr Nolan feeling better. Would like to go home. Discussed that culture results are not yet finalized, and may take some time. Discussed going home on empiric antibiotic coverage and the possible need to change coverage based on final culture results when/if able. He is quite comfortable with this plan. Vitals noted, in general he is awake and alert pleasant no distress. HEENT normocephalic atraumatic mucous membranes moist. Breathing unlabored no accessory muscle use good effort. exam otherwise as above Abscess, cellulitis, probable sepsis present on admissionfailed outpatient treatment either due to the need for more definitive source control (which has now been affected) versus that he truly does have gram-negatives causing a skin infection (which is obviously more rareand understandably his prior antibiotics were directed towards gram-positives). While his white count and heart rate would imply possible sepsis on admission, given that it was not severe sepsis/septic shock, coverage has been more directed to known pseudomonal gram- negatives. Safe/stable for home. Between the fact that we now have source control with the abscess being drained and his MRSA nares negative, no clear need for ongoing MRSA level gram-positive coveragein that respect the beta- lactam should more than suffice for routine staph/strep. We will continue to follow the cultures and call him if antibiotics need to be adjusted. Wound care set up, see surgery in about 2 weeks.
--- NOTE | 2023-08-19 18:13 | Billing Data ---
Date of Service August 19, 2023 Coding Level of Care Code 20464 IN/OBS DISCH 30 MIN/LESS
[2023-08-20 17:53] LABS: Babesia microti DNA Not Detected (Not Detected)
== END 2023-08-19 16:40 | disposition home or self-care (01) ==
LOC: ED 19:14 → 3N 19:14 → SUATTDRO 23:01 → 3N 23:25